=== PATIENT | male | born 1975 | race Caucasian/White ===

== ENCOUNTER 2017-04-14 07:37 | Emergency (ER) | payer SELFPAY ==
[2017-04-14] MEDS ORDERED: Ibuprofen 800 MG TAB ONE (08:12)
--- NOTE | 2017-04-14 08:50 | RAD ---
TWO VIEWS RIGHT TIBIA AND FIBULA: HISTORY: Fall. FINDINGS: AP and lateral views of right tibia and fibula demonstrate an oblique fracture in the distal right fi bula. Proximal distal fracture fragments are mildly displaced. The rest of the right tibia and fibu la is unremarkable. IMPRESSION: Oblique distal right fibula fracture. POS: [facility]
--- NOTE | 2017-04-14 08:51 | RAD ---
RIGHT ANKLE 3 VIEWS: Date: 04/14/17 HISTORY: Pain after fall. COMPARISON: None. FINDINGS: There is a coronal oblique fracture of the distal fibula through the level of the syndesmosis. Mild b imalleolar edema. IMPRESSION: Nondisplaced Olsen B distal fibular fracture through the syndesmosis. POS: [facility]
[2017-04-14] MEDS ORDERED: HYDROcodone/Acetaminophen 5/325 mg Tablet ONE (08:57)
--- NOTE | 2017-04-14 12:40 | RAD ---
LEFT SHOULDER 3 VIEWS: Date: 04/14/17 HISTORY: Pain after a fall. COMPARISON: None. FINDINGS: There is no fracture. No malalignment. There are capsular calcifications of the acromioclavicular violeta nt. Ribs are unremarkable. IMPRESSION: No acute fracture or malalignment. POS: [facility]
== END 2017-04-14 11:50 | disposition home or self-care (01) ==
LOC: ERS 07:37
DX: S82.831A Other fracture of upper and lower end of right fibula, initial encounter for closed fracture (principal); M10.9 Gout, unspecified; Z87.891 Personal history of nicotine dependence; W01.0XXA Fall on same level from slipping, tripping and stumbling without subsequent striking against object, initial encounter
CPT/HCPCS: 29505

== ENCOUNTER 2017-06-08 21:13 | Emergency (ER) | payer SELFPAY ==
--- NOTE | 2017-06-08 22:27 | RAD ---
THREE VIEWS RIGHT ANKLE 06/08/17 HISTORY: Left ankle fracture. Left ankle pain secondary to casting material. Patient states the cast was to be removed today but patient missed appointment. COMPARISON: 04/14/17. FINDINGS: The previously seen obliquely oriented fracture of the distal right fibula is again seen. Fracture fiona cencies do persist, but callus formation is now present about the fracture suggesting interval healin g. No additional fracture or dislocation is seen. There is subcutaneous soft tissue swelling at the a nterior and lateral aspect of the right ankle. No other interval change. IMPRESSION: 1. Healing fracture distal right fibula, but fracture lucencies do persist. 2. Subcutaneous soft tissue swelling. POS: [facility]
== END 2017-06-08 23:34 | disposition home or self-care (01) ==
LOC: ERS 21:13
DX: S82.831P Other fracture of upper and lower end of right fibula, subsequent encounter for closed fracture with malunion (principal); M10.9 Gout, unspecified; Z87.891 Personal history of nicotine dependence

== ENCOUNTER 2020-05-05 03:23 | Observation (INO) | payer SELFPAY ==
[2020-05-05] MEDS ORDERED: Mag-Al 1200 mg/1200 mg/30 ML UDCUP ONE (03:38)
[2020-05-05] MEDS ORDERED: Ketorolac Tromethamine 30 MG/ML VIAL ONE (03:38)
[2020-05-05] MEDS ORDERED: Lidocaine Viscous Sol 2% 15 ml UD Cup ONE (03:38)
[2020-05-05 04:05] LABS: #Basophils 0.1 thou/uL (0.0-0.2); #Eosinphils 0.2 thou/uL (0.0-0.7); #Lymphocytes 2.7 thou/uL (1.20-3.40); #Monocytes 1.1 thou/uL (0.11-0.59); #Neutrophils 9.1 thou/uL (1.40-6.50); %Basophils 0.9 % (0.0-1.0); %Eosinophils 1.3 % (0.0-10.0); %Lymphocytes 20.7 % (21.0-51.0); %Neutrophils 69.1 % (42.0-75.0); Hemoglobin 14.8 g/dL (14.0-18.0); Mean Corpuscular HGB CONC 34.8 g/dL (32.0-36.0); Mean Corpuscular Hemoglobin 31.5 pg (27.0-31.0); Mean Corpuscular Volume 90.4 fL (78.0-98.0); Mean Platelet Volume 7.6 fL (7.4-10.4); Platelet Count 276 thou/uL (130-400); RBC Distribution Width 12.4 % (11.5-14.5); Red Blood Cell (RBC) Count 4.69 mill/uL (4.70-6.10); White Blood Cell (WBC) Count 13.1 thou/uL (4.8-10.8)
[2020-05-05 04:30] LABS: ALT (SGPT) 21 U/L (8-55); AST (SGOT) 17 U/L (5-34); Albumin 4.1 g/dL (3.5-5.0); Alkaline Phosphatase 115 U/L (40-110); Anion Gap 12 mmol/L (10-20); BUN (Urea Nitrogen) 19 mg/dL (8.9-20.6); Bilirubin, Total 0.3 mg/dL (0.2-1.2); Calc. Creatinine Clearance 0 mL/min (70-130); Calcium 9.6 mg/dL (7.8-10.44); Carbon Dioxide 27 mmol/L (22-29); Chloride 102 mmol/L (98-107); Globulin 3.5 g/dL (2.4-3.5); Glucose 100 mg/dL (70-105); Lipase 11 U/L (8-78); Potassium 4.4 mmol/L (3.5-5.1); Protein, Total 7.6 g/dL (6.0-8.3); Sodium 137 mmol/L (136-145)
[2020-05-05] MEDS ORDERED: Ondansetron PF 4 MG/2 ML Vial ONE ×2 (05:08→11:30)
[2020-05-05] MEDS ORDERED: Piperacillin/Tazobactam 4.5 GM VIAL ONE (05:08)
[2020-05-05] MEDS ORDERED: Morphine 4 MG/ML VIAL ONE (05:08)
--- NOTE | 2020-05-05 07:44 | ULT ---
PRELIMINARY REPORT/[facility]/EMERGENCY AFTER HOURS PROCEDURE: Receipt of this report by the clinical staff was confirmed with Ani Orellana RN by Shelby Farrell on May 05, 2020 05:02:00 WEED CUTTER. Addendum electronically signed by Shelby Farrell on May 05, 2020 5:03:11 AM WEED CUTTER EXAM: US Abdomen Limited, Right Upper Quadrant. CLINICAL HISTORY: HX: ABD PAIN. TECHNIQUE: Real-time ultrasound of the right upper quadrant with image documentation. COMPARISON: None provided. FINDINGS: LIVER: Unremarkable. GALLBLADDER: No gallstone. Gallbladder sludge is noted with wall thickening at 4.6 mm along with per icholecystic fluid. COMMON BILE DUCT: No dilation. Measures 5.4 mm PANCREAS: Obscured by overlying bowel gas. RIGHT KIDNEY: Unremarkable. No hydronephrosis. Measures 10.1 cm and demonstrates a 1.6 cm cyst IMPRESSION: The findings are consistent with acalculous cholecystitis ELECTRONICALLY SIGNED BY: Elie Mayo MD May 05, 2020 4:57:20 AM WEED CUTTER FINAL REPORT ULTRASOUND GALLBLADDER RIGHT UPPER QUADRANT: CLINICAL HISTORY: Abdominal pain.. COMPARISON: None. FINDINGS: Limited evaluation due to body habitus. Pancreas: Obscured by bowel gas. Liver:Hepatic parenchyma has a normal echotexture. No hepatic masses or intrahepatic biliary dilatati on. Gallbladder: There is sludge within the lumen of gallbladder. Gallbladder wall is thickened measuring 0.5 cm. A small amount of pericholecystic fluid. Escobar's sign: Positive. Portal Vein: Not adequately assessed. Bile ducts: Not adequately assessed. Right kidney: No hydronephrosis. Right kidney measures 10 cm cm in length. Incidental 1.6 cm cyst. IMPRESSION: 1. This report is in agreement with initial report by [facility]. 2. Sonographic evidence of acalculus cholecystitis. HIDA scan if clinically warranted. Transcribed Date/Time: 05/05/2020 7:55 AM
[2020-05-05] MEDS ORDERED: Morphine 4 MG/ML VIAL SLOW IVP PRN (08:09)
[2020-05-05] MEDS ORDERED: Sodium Chloride 0.9% 1,000 ML IV SCH ×2 (08:15)
[2020-05-05] MEDS ORDERED: Ketorolac Tromethamine 30 MG/ML VIAL IVP SCH (08:15)
[2020-05-05] MEDS ORDERED: Acetaminophen 500 MG TAB PO SCH (08:15)
[2020-05-05] MEDS ORDERED: Bupivacaine PF 0.5% 30 ML VIAL ONE (08:24)
[2020-05-05] MEDS ORDERED: EPINEPHrine 1 MG/ML AMP ONE (08:24)
--- NOTE | 2020-05-05 08:32 | HP ---
HISTORY OF PRESENT ILLNESS: Roe Escobar was seen in the emergency room yesterday, admitted, COVID swab was not done, however, done rapid test requested this morning. He does odd jobs, construction type work, works for himself. He has had over 2 or 3 months of episodic epigastric right upper quadrant pain. This episode was severe, brought into the emergency room. Ultrasound revealed gallbladder sludge, normal LFTs, normal lipase, and normal bile duct caliber. Plan is for laparoscopic cholecystectomy. ALLERGIES: NONE. SOCIAL HISTORY: Tobacco cessation 10 years ago, alcohol rarely. MEDICATIONS: None routinely. PAST SURGICAL AND MEDICAL HISTORY: Noncontributory except hand surgery remotely. REVIEW OF SYSTEMS: Noncontributory. FAMILY HISTORY: Noncontributory. PHYSICAL EXAMINATION: VITAL SIGNS: Temperature 97.4, pulse 65, blood pressure 143/74, 149 kg. HEAD, EARS, EYES, NOSE, AND THROAT: Unremarkable. LUNGS: Clear to auscultation. CARDIAC: Regular rate and rhythm. No murmur or gallop. ABDOMEN: Soft, obese. Tenderness in right upper quadrant guarding. EXTREMITIES: Unremarkable. ASSESSMENT AND PLAN: Cholecystitis. Recommend laparoscopic video cholecystectomy. Risks of infection, bleeding, visceral and biliary injury, open procedure discussed, questions answered. Plan is today unless of course rapid test could not be performed or approved stay overnight. Job ID: [id number]
[2020-05-05 08:41] VITALS: BMI 40.1
[2020-05-05 09:19] LABS: SARS-CoV-2 NAA Rapid Test Not Detected (NotDetected)
--- NOTE | 2020-05-05 09:21 | RAD ---
PORTABLE CHEST: HISTORY: Abdominal pain. FINDINGS: Lungs appear clear of infiltrate. Heart and mediastinum unremarkable. IMPRESSION: No acute finding. POS: [facility]
[2020-05-05] MEDS ORDERED: Piperacillin/Tazobactam 4.5 GM in Sodium Chloride 0.9% 100 ML IVPB SCH (11:00)
[2020-05-05] MEDS ORDERED: Ondansetron PF 4 MG/2 ML Vial IVP PRN (11:15)
[2020-05-05] MEDS ORDERED: Ondansetron ODT 4 MG TAB SL PRN (11:15)
[2020-05-05] MEDS ORDERED: PROPOFOL 200 MG/20 ML VIAL ONE (11:30)
[2020-05-05] MEDS ORDERED: Lidocaine 1% PF 5 ML VIAL ONE (11:30)
[2020-05-05] MEDS ORDERED: Metoclopramide HCl 10 MG/2 ML VIAL ONE (11:30)
[2020-05-05] MEDS ORDERED: Dexamethasone 20 MG/5 ML VIAL ONE (11:30)
[2020-05-05] MEDS ORDERED: Rocuronium Bromide 10 MG/ML (10ML VIAL) ONE (11:30)
[2020-05-05] MEDS ORDERED: Fentanyl 100 MCG/2 ML VIAL ONE ×5 (11:39→14:24)
[2020-05-05] MEDS ORDERED: Famotidine/PF 20 mg/2ml Vial ONE (12:13)
[2020-05-05] MEDS ORDERED: SUGAMMADEX SODIUM 500 MG/5 ML VIAL ONE (12:13)
[2020-05-05] MEDS ORDERED: Ibuprofen 600 MG TAB PO PRN (12:50)
[2020-05-05] MEDS ORDERED: traMADol HCl 50 MG TAB PO PRN ×2 (12:50)
[2020-05-05] MEDS ORDERED: Promethazine HCl 25 MG/ML VIAL SLOW IVP PRN (12:52)
[2020-05-05] MEDS ORDERED: Promethazine HCl 25 MG/ML VIAL IM PRN (12:52)
[2020-05-05] MEDS ORDERED: Ondansetron HCl/PF 4 MG/2 ML Vial IVP PRN (12:52)
[2020-05-05] MEDS ORDERED: hydrALAZINE 20 MG/ML VIAL SLOW IVP PRN (12:55)
[2020-05-05] MEDS ORDERED: Metoprolol Tartrate 5 MG/5 ML VIAL IVP PRN (12:56)
--- NOTE | 2020-05-05 13:22 | OP ---
DATE OF PROCEDURE: 05/05/2020 PREOPERATIVE DIAGNOSES: Acute chronic cholecystitis, cholelithiasis, obesity. POSTOPERATIVE DIAGNOSES: Acute chronic cholecystitis, cholelithiasis, obesity. PROCEDURE PERFORMED: Laparoscopic video cholecystectomy. ANESTHESIA: General, local 0.5% Marcaine 30 mL, mixed with 1% Xylocaine with epinephrine 20 mL. DESCRIPTION OF PROCEDURE: The patient was taken to the operating room, where under general anesthesia, abdomen was prepared with ChloraPrep and draped in routine fashion. Local anesthetic was infiltrated in the skin and subcutaneous tissue about each port site. Supraumbilical incision made, pneumoperitoneum to 15 mmHg obtained with a Veress needle, replaced with a 5 port. Laparoscope inserted. Right lateral subcostal incision made in midclavicular and anterior axillary line and 5 ports placed. Right subxiphoid incision was made and 11 port placed. Liver appeared to be normal. Fundus of the gallbladder grasped and retracted cephalad. Gallbladder wall was slightly thickened and edematous. Infundibulum grasped and retracted laterally. Cystic artery and duct dissected free. Critical view obtained. Cystic artery and duct doubly clipped proximally, divided. Gallbladder dissected free from liver bed obtaining good hemostasis prior to division of final peritoneal attachments. Gallbladder and contents removed, submitted to Pathology. Good hemostasis obtained with clips and cautery. Good hemostasis ensured and all instruments removed and all skin incisions approximated with subdermal 4-0 Monocryl, and [place] glue applied. The patient tolerated the procedure well. Job ID: [id number]
[2020-05-05] MEDS ORDERED: Morphine 2 MG/ML VIAL ONE (13:33)
[2020-05-05] MEDS ORDERED: hydrALAZINE 20 MG/ML VIAL ONE (13:52)
[2020-05-05] MEDS ORDERED: Labetalol HCl 100 MG/20 ML VIAL ONE (14:18)
[2020-05-05] MEDS ORDERED: Ketorolac Tromethamine 30 MG/ML VIAL IVP PRN (15:00)
[2020-05-05] MEDS ORDERED: Acetaminophen 500 MG TAB PO PRN (15:00)
[2020-05-05 15:18] VITALS: TEMP 97.9
[2020-05-05 18:07] VITALS: BP 134/82
--- NOTE | 2020-05-06 07:12 | DIS ---
DATE OF ADMISSION: 05/05/2020 DATE OF DISCHARGE: 05/05/2020 DISCHARGE DIAGNOSES: Obesity, BMI 40, cholecystitis, cholelithiasis. PROCEDURES: Ultrasound of the gallbladder, laparoscopic video cholecystectomy. HISTORY: 44-year-old male patient presented with biliary colic history, presents with intolerable pain, seen in the emergency room. Ultrasound obtained, verified cholelithiasis, gallbladder sludge, normal bile duct caliber, and pericholecystic fluid. Liver function tests were normal. He was hospitalized overnight, given intravenous fluids, antibiotics, and taken to the operating room for laparoscopic video cholecystectomy after which he was discharged home. Diet and activity as tolerated. No lifting restrictions. Tylenol, Advil [id number] p.r.n. pain. Ultram #25, no refills was submitted to his Pharmacy. Job ID: [id number]
== END 2020-05-05 18:30 | disposition home or self-care (01) ==
LOC: ERS 03:23 → SURG A 06:28
PROVIDERS: ADMIT Surgery; ATTEND Surgery
PROC: 0FT44ZZ Resection of Gallbladder, Percutaneous Endoscopic Approach (ICD-10-PCS; principal; 2020-05-05)
DX: K80.12 Calculus of gallbladder with acute and chronic cholecystitis without obstruction (principal); G89.29 Other chronic pain; M54.9 Dorsalgia, unspecified; M10.9 Gout, unspecified; M17.9 Osteoarthritis of knee, unspecified; E66.9 Obesity, unspecified; Z68.41 Body mass index [BMI] 40.0-44.9, adult; Z87.891 Personal history of nicotine dependence; Z20.822 Contact with and (suspected) exposure to COVID-19
CPT/HCPCS: 36415; 71045; 76705; 80053; 83690; 84484; 85025; 88304; 93005; 96374; 96375; 96376; G0378; J0171; J0360; J1100; J1885; J1956; J2270; J2405; J2543; J2704; J2765; J3010; S0020; S0028; U0002

== ENCOUNTER 2020-05-09 14:34 | Inpatient (IN) | payer SELFPAY ==
[~2020-05-09 14:34] MED LIST: Iopamidol-370 76% 500 ML 1 ML ONE
[2020-05-09 15:21] LABS: #Eosinphils 0.5 thou/uL (0.0-0.7); #Lymphocytes 1.8 thou/uL (1.20-3.40); #Monocytes 1.4 thou/uL (0.11-0.59); #Neutrophils 7.9 thou/uL (1.40-6.50); %Basophils 0.3 % (0.0-1.0); %Eosinophils 4.6 % (0.0-10.0); %Lymphocytes 15.5 % (21.0-51.0); %Monocytes 11.7 % (0.0-10.0); %Neutrophils 67.9 % (42.0-75.0); Hemoglobin 15.3 g/dL (14.0-18.0); Mean Corpuscular HGB CONC 34.1 g/dL (32.0-36.0); Mean Corpuscular Hemoglobin 31.5 pg (27.0-31.0); Mean Corpuscular Volume 92.4 fL (78.0-98.0); Mean Platelet Volume 7.7 fL (7.4-10.4); Platelet Count 256 thou/uL (130-400); RBC Distribution Width 12.6 % (11.5-14.5); Red Blood Cell (RBC) Count 4.87 mill/uL (4.70-6.10); White Blood Cell (WBC) Count 11.6 thou/uL (4.8-10.8)
[2020-05-09] MEDS ORDERED: Morphine 4 MG/ML VIAL ONE (15:28)
[2020-05-09] MEDS ORDERED: Ondansetron PF 4 MG/2 ML Vial ONE (15:28)
[2020-05-09 15:51] LABS: ALT (SGPT) 610 U/L (8-55); AST (SGOT) 331 U/L (5-34); Albumin 3.8 g/dL (3.5-5.0); Alkaline Phosphatase 394 U/L (40-110); Anion Gap 17 mmol/L (10-20); BUN (Urea Nitrogen) 21 mg/dL (8.9-20.6); Calc. Creatinine Clearance 0 mL/min (70-130); Calcium 9.1 mg/dL (7.8-10.44); Carbon Dioxide 22 mmol/L (22-29); Chloride 102 mmol/L (98-107); Globulin 3.8 g/dL (2.4-3.5); Glucose 126 mg/dL (70-105); Potassium 4.7 mmol/L (3.5-5.1); Protein, Total 7.6 g/dL (6.0-8.3); Sodium 136 mmol/L (136-145)
[2020-05-09 16:01] LABS: Lipase 4926 U/L (8-78)
--- NOTE | 2020-05-09 16:02 | CT ---
EXAM: CT ABDOMEN AND PELVIS HISTORY: Recent cholecystectomy. Worsening abdominal pain. COMPARISON: None. Procedure: Multiple contiguous axial images were obtained and a CT of the abdomen and pelvis with IV contrast. C oronal reformats were performed. FINDINGS: Lower Chest: Atelectatic changes in the right lower lobe. Asymmetric right pleural thickening with fa t attenuation. Vessels: Normal caliber aorta. No periaortic fat stranding Heart: Normal heart size. No significant pericardial fluid Abdomen: Portal vein:Patent Gallbladder: Surgically absent. There is heterogeneous attenuation the gallbladder fossa which is pre sumed to represent post surgical change. Liver: within normal limits. Pancreas: Appropriate attenuation the pancreas. However, there is extensive peripancreatic fluid worr isome for pancreatitis. No evidence of a abscess or pseudocyst. Correlate with laboratory values. Spleen: within normal limits. Adrenals: within normal limits. Kidneys: Enhancement of the kidneys. Bilaterally no obstructive uropathy. There is a intraparenchymal cyst in the right renal cortex measuring 2.0 x 3.2 cm. Peritoneum: There is evidence of peripancreatic fluid. Fluid tracks along the left and right hemiabdo men anterior to the renal space. No mass, lymphadenopathy or free air. No evidence of a peritoneal abscess. Bowel: Evaluation the lack of oral contrast. There appear to be reactive changes involving the duoden um from adjacent pancreatitis. No evidence of a bowel obstruction. Normal ileocecal junction. Scattered fecal material in a decompressed colon. Normal caliber appendix. Mesentery and Retroperitoneum: No enlarged mesenteric or retroperitoneal lymph nodes. Abdominal Wall: Findings compatible with recent laparoscopic cholecystectomy Pelvis: Reproductive Organs: Reproductive organs are unremarkable. Pelvis: No mass, lymphadenopathy, free air or free fluid. Bladder: within normal limits. Bones: within normal limits. IMPRESSION: 1. Peripancreatic inflammatory changes. Correlate for possible pancreatitis. 2. Postsurgical changes compatible with patient's history: Discectomy. Heterogeneous attenuation gall bladder fossa likely represents post surgical change. No evidence of a intra-abdominal abscess. If there is concern for biliary leak, consider HIDA scan.
[2020-05-09] MEDS ORDERED: Sodium Chloride 0.9% 1,000 ML IV SCH (16:45)
[2020-05-09 17:12] LABS: Bilirubin Large (Negative); Blood, Urine Negative (Negative); Glucose, Urine (Dipstick) Negative (Negative); Ketone, Urine Negative (Negative); Leukocyte Negative (Negative); Nitrite Negative (Negative); Protein, Urine (Dipstick) Trace mg/dL (Neg-Trace); pH, Urine 6.5 (5.0-9.0)
[2020-05-09 17:27] LABS: Clarity Clear (Clear); RBC/HPF None Seen HPF (0-3); Squamous Epithelial 0-3 HPF (0-3); WBC/HPF None Seen HPF (0-3)
[2020-05-09 17:28] LABS: Bacteria/HPF None Seen HPF (None Seen)
[2020-05-09] MEDS ORDERED: Morphine 4 MG/ML VIAL IV PRN (18:19)
[2020-05-09] MEDS ORDERED: Ondansetron PF 4 MG/2 ML Vial IVP PRN ×3 (18:30→20:13)
[2020-05-09] MEDS ORDERED: Ondansetron ODT 4 MG TAB SL PRN ×2 (18:30→20:39)
[2020-05-09] MEDS ORDERED: Acetaminophen 325 MG TAB PO PRN (18:30)
[2020-05-09 20:02] VITALS: BMI 41.5
[2020-05-09] MEDS ORDERED: Ondansetron ODT 4 MG TAB PO PRN (20:11)
[2020-05-09] MEDS ORDERED: Ketorolac Tromethamine 30 MG/ML VIAL IVP PRN (20:13)
[2020-05-09] MEDS ORDERED: Enoxaparin Sodium 40 MG/0.4 ML SYRINGE SC SCH (21:00)
[2020-05-09] MEDS: Lactated Ringer's 1,000 ML IV SCH (21:35)
[2020-05-09] MEDS: Famotidine/PF 20 mg/2ml Vial SLOW IVP SCH (21:36)
[2020-05-09] MEDS: Enoxaparin Sodium 40 MG/0.4 ML SYRINGE SC SCH (21:37)
[2020-05-09] MEDS: Morphine 4 MG/ML VIAL IV PRN ×2 (21:42→23:50)
--- NOTE | 2020-05-09 21:58 | HP ---
HISTORY OF PRESENT ILLNESS: Roe Escobar is a 44-year-old male patient, who I saw through the emergency room and on 05/05/2020, underwent laparoscopic video cholecystectomy and was discharged home the same day. Pathology revealed chronic cholecystitis, cholelithiasis, cholesterolosis. Preoperatively, his liver function tests were normal. Preoperatively, his lipase was normal. The patient states that he after went home on May 05, that he was doing well and he felt well on Tuesday and Tuesday, but began having increased abdominal pain, nausea, vomiting, prompting to call my office late in the morning just before office closed and he was advised to go to the emergency room. In the emergency room, his bilirubin was noted to be 6, AST 331, ALT 16, alkaline phosphatase 394, lipase 4926. Repeat COVID was performed and results pending. Urinalysis reveals specific gravity 1.020. White count is 11, hemoglobin 15.3. The patient underwent scan of the abdomen and pelvis in the emergency room, read by Dr. Green, revealed the liver to be normal with peripancreatic findings consistent with pancreatitis. Gallbladder noted to be surgically absent and some mild inflammatory changes, but no fluid collection. There was not noted any evidence of biliary dilatation or at least not commented upon. The patient was given 1 L of fluid and saline locked, and after conversation with the ER physician, given another liter of fluid and fluids at 200 an hour. ALLERGIES: NONE KNOWN. SOCIAL HISTORY: Tobacco cessation 10 years ago, alcohol rarely. MEDICATIONS: None routinely. PAST SURGICAL HISTORY: Hand surgery, recent cholecystectomy. FAMILY HISTORY: Noncontributory. No change. REVIEW OF SYSTEMS: Noncontributory. No change. PHYSICAL EXAMINATION: VITAL SIGNS: Temperature 97.8, pulse 78, blood pressure 145/104. LUNGS: Clear to auscultation. CARDIAC: Regular rate and rhythm. No murmur or gallop. ABDOMEN: Obese. Laparoscopic trocar site incisions well healed and well closed with Dermabond without problems evident. No evident hernias. He has tenderness in his upper abdomen with guarding. EXTREMITIES: Unremarkable. LABORATORY DATA: Liver function test elevation is noted, described. Bilirubin 6, AST 331, ALT 16, alkaline phosphatase 394, 4926 lipase. ASSESSMENT AND PLAN: Postoperative biliary pancreatitis with elevated bilirubin. Would resuscitate him with IV fluids. Repeat liver function tests in the morning. Depending on his clinical course, if his LFTs do not resolve, he may need GI consultation for consideration of ERCP or MRCP. We will see how he does clinically. We will ask GI to see him in the morning. We will repeat his COVID screen. Job ID: [id number]
[2020-05-09] MEDS: Ketorolac Tromethamine 30 MG/ML VIAL IVP SCH (23:46)
[2020-05-10] MEDS: Lactated Ringer's 1,000 ML IV SCH ×5 (02:05→20:11)
[2020-05-10 04:16] LABS: SARS-CoV-2 PCR by NAA Not Detected (NotDetected)
[2020-05-10] MEDS: Morphine 4 MG/ML VIAL IV PRN (04:27)
[2020-05-10] MEDS: Ketorolac Tromethamine 30 MG/ML VIAL IVP SCH ×3 (06:18→18:02)
[2020-05-10] MEDS: Morphine 4 MG/ML VIAL SLOW IVP PRN ×3 (06:19→21:37)
[2020-05-10 08:02] LABS: #Basophils 0.1 thou/uL (0.0-0.2); #Eosinphils 0.2 thou/uL (0.0-0.7); #Lymphocytes 1.2 thou/uL (1.20-3.40); #Monocytes 1.3 thou/uL (0.11-0.59); #Neutrophils 14.3 thou/uL (1.40-6.50); %Basophils 0.3 % (0.0-1.0); %Eosinophils 0.9 % (0.0-10.0); %Lymphocytes 7.3 % (21.0-51.0); %Monocytes 7.4 % (0.0-10.0); %Neutrophils 84.2 % (42.0-75.0); Hemoglobin 16.5 g/dL (14.0-18.0); Mean Corpuscular HGB CONC 33.8 g/dL (32.0-36.0); Mean Corpuscular Hemoglobin 31.7 pg (27.0-31.0); Mean Corpuscular Volume 93.9 fL (78.0-98.0); Mean Platelet Volume 7.7 fL (7.4-10.4); Platelet Count 243 thou/uL (130-400); RBC Distribution Width 12.5 % (11.5-14.5)
[2020-05-10 08:15] LABS: ALT (SGPT) 425 U/L (8-55); AST (SGOT) 149 U/L (5-34); Albumin 3.4 g/dL (3.5-5.0); Alkaline Phosphatase 428 U/L (40-110); Anion Gap 15 mmol/L (10-20); BUN (Urea Nitrogen) 19 mg/dL (8.9-20.6); Bilirubin, Total 7.2 mg/dL (0.2-1.2); Calc. Creatinine Clearance 252 mL/min (70-130); Calcium 8.6 mg/dL (7.8-10.44); Carbon Dioxide 21 mmol/L (22-29); Chloride 105 mmol/L (98-107); Globulin 3.2 g/dL (2.4-3.5); Glucose 97 mg/dL (70-105); Lipase 868 U/L (8-78); Potassium 4.6 mmol/L (3.5-5.1); Protein, Total 6.6 g/dL (6.0-8.3); Sodium 136 mmol/L (136-145)
[2020-05-10] MEDS: Famotidine/PF 20 mg/2ml Vial SLOW IVP SCH ×2 (09:05→20:14)
[2020-05-10] MEDS ORDERED: Sodium Chloride 0.9% 1,000 ML IV SCH (10:15)
--- NOTE | 2020-05-10 12:53 | PDOC.BPN ---
- Brief Progress Note Encounter Date: 05/10/20 Encounter Time: 12:51 No acute events overnight. Denies nausea or vomiting. Complains of stable abdominal pain EXAM: VS: T 98.3 HR 93 BP 143/91 RR 16 General: Alert and oriented, no acute distress, resting comfortably Pulmonary: No dyspnea or difficulty breathing Abdomen: Soft, non-distended, general tenderness to palpation in the mid abdomen. No evidence of peritonitis CV: Regular rate and rhythm, palpable distal pulses Extremities: No edema I/O: N.p.o. oral intake Multiple voids voids [facility] LAB[facility]ATORY / IMAGING: Laboratory analysis reviewed and demonstrates an increasing leukocytosis from 11.6-17. Hemoglobin stable at 16.5. Total bilirubin elevated from 6-7.2. Elevated alkaline phosphatase at 428 and lipase at 868. PLAN: 44-year-old male status post laparoscopic cholecystectomy on May 05, 2020, now with likely common bile duct obstruction with associated pancreatitis. Gastroenterology has been consulted and plans for ERCP. We will continue to follow and reevaluate after ERCP. recommend continued fluid resuscitation and strict ins and outs. [ ]
[2020-05-10 15:48] LABS: Hemoglobin 15.9 g/dL (14.0-18.0); Mean Corpuscular HGB CONC 33.3 g/dL (32.0-36.0); Mean Corpuscular Hemoglobin 31.1 pg (27.0-31.0); Mean Corpuscular Volume 93.4 fL (78.0-98.0); Mean Platelet Volume 7.9 fL (7.4-10.4); Platelet Count 237 thou/uL (130-400); RBC Distribution Width 12.7 % (11.5-14.5); Red Blood Cell (RBC) Count 5.12 mill/uL (4.70-6.10); White Blood Cell (WBC) Count 20.1 thou/uL (4.8-10.8)
[2020-05-10 16:04] LABS: MDiff Complete? YES
[2020-05-10 16:05] LABS: Band 13 % (5-11); Eosinophils 1 % (0-10); Lymphocytes 6 % (21-51); Monocytes 10 % (0-10); Neutrophil 62 % (42-75); Platelet Morphology Comment Appears Adequate; Polychromasia SLIGHT = 2-3 cells (100X) (0-2/hpf); Reactive Lymphocytes 7 % (0-10)
[2020-05-10 16:08] LABS: ALT (SGPT) 353 U/L (8-55); AST (SGOT) 106 U/L (5-34); Albumin 3.2 g/dL (3.5-5.0); Alkaline Phosphatase 418 U/L (40-110); Anion Gap 15 mmol/L (10-20); BUN (Urea Nitrogen) 18 mg/dL (8.9-20.6); Bilirubin, Total 8.5 mg/dL (0.2-1.2); Calc. Creatinine Clearance 238 mL/min (70-130); Calcium 8.4 mg/dL (7.8-10.44); Carbon Dioxide 20 mmol/L (22-29); Chloride 104 mmol/L (98-107); Globulin 3.1 g/dL (2.4-3.5); Glucose 75 mg/dL (70-105); Lipase 551 U/L (8-78); Potassium 4.6 mmol/L (3.5-5.1); Protein, Total 6.3 g/dL (6.0-8.3); Sodium 134 mmol/L (136-145)
[2020-05-10] MEDS: Enoxaparin Sodium 40 MG/0.4 ML SYRINGE SC SCH (20:15)
[2020-05-11] MEDS: Ketorolac Tromethamine 30 MG/ML VIAL IVP SCH ×5 (00:58→23:40)
[2020-05-11] MEDS: Lactated Ringer's 1,000 ML IV SCH ×5 (01:00→23:41)
[2020-05-11] MEDS: Morphine 4 MG/ML VIAL SLOW IVP PRN (05:36)
[2020-05-11 06:02] LABS: #Eosinphils 0.1 thou/uL (0.0-0.7); #Lymphocytes 1.5 thou/uL (1.20-3.40); #Monocytes 2.5 thou/uL (0.11-0.59); #Neutrophils 19.4 thou/uL (1.40-6.50); %Basophils 0.2 % (0.0-1.0); %Eosinophils 0.3 % (0.0-10.0); %Lymphocytes 6.2 % (21.0-51.0); %Monocytes 10.5 % (0.0-10.0); %Neutrophils 82.8 % (42.0-75.0); Hemoglobin 15.3 g/dL (14.0-18.0); Mean Corpuscular HGB CONC 33.4 g/dL (32.0-36.0); Mean Corpuscular Hemoglobin 31.2 pg (27.0-31.0); Mean Corpuscular Volume 93.4 fL (78.0-98.0); Mean Platelet Volume 7.9 fL (7.4-10.4); Platelet Count 241 thou/uL (130-400); RBC Distribution Width 12.6 % (11.5-14.5); White Blood Cell (WBC) Count 23.5 thou/uL (4.8-10.8)
--- NOTE | 2020-05-11 07:45 | PDOC.BPN ---
- Brief Progress Note Encounter Date: 05/11/20 Encounter Time: 07:40 Abdominal pain stable. Continues with some emesis EXAM: VS: T 99.1 HR 97 BP 141/85 RR 16 General: Alert and oriented, no acute distress, resting comfortably Pulmonary: No dyspnea or difficulty breathing Abdomen: Soft, non-distended, stable to improving abdominal pain. Incisions clean CV: Regular rate and rhythm, palpable distal pulses Extremities: No edema I/O: N.p.o. oral intake 2700 [facility] LAB[facility]ATORY / IMAGING: Laboratory analysis reviewed and demonstrates an increasing leukocytosis from 17-20. Hemoglobin stable. Total bilirubin elevated from 7.2 - 8.5. Elevated alkaline phosphatase. Lipase decreased from 8 68-5 51 PLAN: 44-year-old male status post laparoscopic cholecystectomy on May 05, 2020, now with likely common bile duct obstruction with associated pancreatitis. Case discussed with GI this morning... plans for ERCP today. We will continue to follow and reevaluate after ERCP. Recommend continued fluid resuscitation and strict ins and outs.
[2020-05-11 08:19] LABS: ALT (SGPT) 241 U/L (8-55); AST (SGOT) 58 U/L (5-34); Alkaline Phosphatase 409 U/L (40-110); Bilirubin, Direct 6.6 mg/dL (0.1-0.3); Bilirubin, Total 8.4 mg/dL (0.2-1.2); Protein, Total 6.1 g/dL (6.0-8.3)
[2020-05-11 08:19] LABS: ALT (SGPT) 243 U/L (8-55); AST (SGOT) 58 U/L (5-34); Alkaline Phosphatase 406 U/L (40-110); Anion Gap 14 mmol/L (10-20); BUN (Urea Nitrogen) 17 mg/dL (8.9-20.6); Bilirubin, Total 8.7 mg/dL (0.2-1.2); Calc. Creatinine Clearance 249 mL/min (70-130); Calcium 8.6 mg/dL (7.8-10.44); Carbon Dioxide 24 mmol/L (22-29); Chloride 104 mmol/L (98-107); Globulin 3.2 g/dL (2.4-3.5); Glucose 81 mg/dL (70-105); Lipase 272 U/L (8-78); Potassium 4.2 mmol/L (3.5-5.1); Protein, Total 6.2 g/dL (6.0-8.3); Sodium 138 mmol/L (136-145)
[2020-05-11] MEDS ORDERED: Succinylcholine 200 MG/10 ml SYRINGE FS ONE (08:47)
[2020-05-11] MEDS ORDERED: PROPOFOL 200 MG/20 ML VIAL ONE (08:47)
[2020-05-11] MEDS ORDERED: Ondansetron PF 4 MG/2 ML Vial ONE (08:47)
[2020-05-11] MEDS ORDERED: Glycopyrrolate 0.2 MG/ML 5 ML SYRINGE ONE (08:47)
[2020-05-11] MEDS ORDERED: Rocuronium Bromide 10 MG/ML (10ML VIAL) ONE (08:47)
[2020-05-11] MEDS ORDERED: Dexamethasone 20 MG/5 ML VIAL ONE (08:47)
[2020-05-11] MEDS ORDERED: Lidocaine 1% PF 5 ML VIAL ONE (08:47)
--- NOTE | 2020-05-11 09:29 | CON ---
DATE OF CONSULTATION: 05/10/2020 CONSULTING PHYSICIAN: Dr. Virgilio Greenwood. REASON FOR CONSULTATION: Pancreatitis. HISTORY OF PRESENT ILLNESS: Mr. Escobar is a 44-year-old gentleman who had a laparoscopic cholecystectomy on 05/05. He had laparoscopic cholecystectomy for gallbladder sludge, gallbladder wall thickening, pericholecystic fluid. Common bile duct was reportedly at 5.4 mm. He underwent laparoscopic cholecystectomy and was discharged home. Surgical specimen showed acute on chronic cholecystitis with cholesterolosis. He re-presented last night with abdominal pain, had a white count of 11, hemoglobin 15.3, and platelet count of 256. His bilirubin was 6. AST and ALT were 331 and 610 with alkaline phosphatase of 394. His alkaline phosphatase was 115 prior to surgery. His lipase was 4926, it had been 11 previous admission. He was admitted, given IV fluids, presently receiving 175 mL/hour of IV fluids, receiving pain control, Pepcid for ulcer prophylaxis. Presently, he states he feels a little bit better. The nurses states he has been voiding through the night. PAST MEDICAL HISTORY: Obesity. PAST SURGICAL HISTORY: Cholecystectomy and hand surgery. FAMILY HISTORY: Noncontributory. SOCIAL HISTORY: Negative for alcohol, drugs, or tobacco. PRESENT MEDICATIONS: 1. Lovenox. 2. Pepcid. 3. Toradol 30 mg q.6 hours p.r.n. 4. LR 175 an hour. 5. Morphine p.r.n. 6. Zofran p.r.n. PHYSICAL EXAMINATION: VITAL SIGNS: Temperature is 98.3. Pulse is 101, it was 92 last night. Blood pressure 128/86. GENERAL: He is resting in bed. He is a little bit sleepy. The nurse notes he had pain medicine about an hour ago. HEENT: He is mildly icteric. The oropharynx is slightly dry. NECK: Supple. LUNGS: Clear. HEART: Regular without clicks or murmurs. ABDOMEN: Soft. It is tender. It is very protuberant. It is not tight. Bowel sounds are quiescent but present. There are no hernias. There is no rebound or guarding. Incision sites look okay. EXTREMITIES: No clubbing, cyanosis, or edema. LABORATORY DATA: Today; white count 17,000 up from 15, hemoglobin is up to 16.5 from 15.3, platelets were 243. Basic metabolics okay. BUN and creatinine are 19 and 0.8. Bilirubin 7.2, which is higher. AST is down to 149, ALT is down to 425 down from 610, and alkaline phosphatase is 428, which is a little bit up. Lipase has dropped to 868. ASSESSMENT: 1. Post laparoscopic cholecystectomy, he has now got pancreatitis, likely this is related to choledocholithiasis. He did not have an IOC at time of his surgery. Some type of surgical trauma could be at play or a common bile duct injury, but cause pancreatitis. The CT scan is consistent with pancreatitis. 2. His hemoglobin has actually increased since admission as his white count has. RECOMMENDATIONS: 1. Bolus a liter of fluid, increase fluids to 200 an hour. 2. With dropping lipase, he probably has passed the stone. He shows no signs of cholangitis. We will continue to follow along with you and repeat LFTs tomorrow. If he begins to show any evidence of ascending cholangitis or liver function tests down to normal, we can consider an ERCP. Job ID: [id number]
[2020-05-11] MEDS ORDERED: Indomethacin 50 MG SUPP ONE (09:58)
[2020-05-11] MEDS ORDERED: Iothalamate Meglumine 60% 50 ML VIAL FS ONE (09:58)
[2020-05-11] MEDS: Famotidine/PF 20 mg/2ml Vial SLOW IVP SCH ×2 (10:00→21:01)
[2020-05-11] MEDS ORDERED: Fentanyl 100 MCG/2 ML VIAL ONE (10:01)
[2020-05-11] MEDS ORDERED: Promethazine HCl 25 MG/ML VIAL SLOW IVP PRN (11:28)
[2020-05-11] MEDS ORDERED: HYDROmorphone 2 MG/ML VIAL SLOW IVP PRN (11:28)
[2020-05-11] MEDS ORDERED: Promethazine HCl 25 MG/ML VIAL IM PRN (11:28)
[2020-05-11] MEDS ORDERED: Ondansetron HCl/PF 4 MG/2 ML Vial IVP PRN (11:28)
--- NOTE | 2020-05-11 11:57 | PRG ---
DATE OF SERVICE: 05/11/2020 SUBJECTIVE: Mr. Escobar continues to have some abdominal pain, although much better. MEDICATIONS: 1. Pepcid 20 IV q.12. 2. Lovenox. 3. Hydralazine p.r.n. 4. Toradol 30 q.6. 5. LR 200. 6. PRN morphine. OBJECTIVE: VITAL SIGNS: Temperature is 98, pulse is 83, blood pressure is 150/82, T-max 100 last night at 2000 hours. GENERAL: He is obese. He is somewhat sleepy, but arousable. He is icteric. LUNGS: Clear. ABDOMEN: Tender in the upper abdomen. It is not tight. There is no rebound. There is voluntary guarding. LABORATORY DATA: Sodium 138, potassium 4.2, BUN and creatinine are 17 and 0.8, bilirubin is 8.7 and it was 8.5 yesterday. AST is 58, down from 149 on admission; ALT is 243, down from 425 on admission; alkaline phosphatase is 406. Lipase is 272. White count 23,000, hemoglobin 15.3 and stable, and platelets 241. Microbiology, none. ASSESSMENT: 1. Pancreatitis, likely biliary, resolving. 2. Liver function tests remain elevated, leukocytosis persists. Differential diagnosis would include retained stone, cholangitis, bile leak. Recommendations: ERCP today. Risks, benefits, and possible complications including perforation, reaction to medication, and aspiration discussed with the patient. He understands and indicated to proceed. 3. Pancreatitis is improved. We would keep on aggressive fluid resuscitation. Depending on findings of ERCP, may decrease IV fluid rate. BUN, creatinine, and hemoglobin all remained stable and trended in a direction that indicates adequate resuscitation. Job ID: [id number]
--- NOTE | 2020-05-11 12:27 | RAD ---
EXAM: XR ERCP PROVIDED CLINICAL HISTORY: Post cholecystectomy. COMPARISON: None FINDINGS/IMPRESSION: 9 intraoperative fluoroscopic images of the right upper quadrant are submitted. Surgical clips are se en overlying the right upper quadrant related to patient's history of cholecystectomy. Subsequent imaging demonstrates cannulation of the common duct with opacification of the common duct and intrahe patic ducts. No biliary ductal dilatation is appreciated. No definitive filling defect is seen within the opacified portions of the common duct. However, no images demonstrating free spill of cont rast into the duodenum are provided. Final image demonstrates an endostent in place in the distal common duct. Correlation with intraoperative findings is recommended.
--- NOTE | 2020-05-11 13:09 | OP ---
DATE OF PROCEDURE: 05/11/2020 PREPROCEDURE DIAGNOSES: 1. Pancreatitis, likely biliary improving. 2. Leukocytosis, low-grade fever and persistently elevated LFTs concerning for cholangitis, retained common duct stone or bile leak. PROCEDURES: Endoscopic retrograde cholangiopancreatography, sphincterotomy, and placement of stent. POSTPROCEDURE DIAGNOSES: 1. Suspected bile leak. No choledocholithiasis. 4 mm common bile duct. 2. Study limited by body habitus and difficulty with radiographic imaging secondary to body habitus. 3. Suspected bile leak. 4. A 7.5 5-cm stent placement in the distal common bile duct. ANESTHESIA: General endotracheal anesthesia. Indocin 100 mg given prophylactically as well as Levaquin 500 mg. PROCEDURE IN DETAIL: After the patient was informed of the risk, benefits, and possible complications of endoscopy including perforation, bleeding, reaction to medication, aspiration informed consent was obtained. The patient was brought to endoscopy suite, where he was intubated and then once his airway was secured, placed in a prone position carefully on the fluoroscopy table. A residential installer film was obtained showing his body habitus, giving us a really difficult time of even visualizing the clips in the right upper quadrant from his recent cholecystectomy last week. The side-viewing endoscope was advanced through the bite block into the esophagus stomach and second portion of the duodenum where the ampulla was brought into view. There was significant edema submucosal in the duodenum consistent with his pancreatitis. Ampulla was identified. There was clear bile emanating from it, it was very small free cannulation was obtained with assistance of a floppy guidewire. Cholangiogram showed what appears to be a bile leak with the degraded fluoroscopy images secondary to body habitus. It is unclear if this is coming from the upper right hepatic duct of [place] or the cystic duct stump. No filling defects were seen. No pus was noted in the bile. It was clear and yellow. A sphincterotomy was performed over a guidewire. An 8 mm balloon was used and occlusion cholangiogram was performed showing more inflammation of some contrast around the clips in the right upper quadrant. Again, I cannot be certain there is a bile leak there, but that is my clinical suspicion because there are no stones or filling defects in the bile duct. There was no evidence of common bile duct injury. There was good filling of the intrahepatic ducts bilaterally. At this point time, the duct was swept several times. No stones or debris coming through and good spontaneous drainage of contrast. Decision was made to place a stent for the suspected bile leak and a 7.5-[place] 5 cm stent was placed under fluoroscopic and video guidance with good drainage documented afterwards both endoscopically and fluoroscopic. The scope was removed, the patient tolerated the procedure well. There were no complications. Job ID: [id number]
[2020-05-11] MEDS: Enoxaparin Sodium 40 MG/0.4 ML SYRINGE SC SCH (21:01)
[2020-05-12] MEDS: Ketorolac Tromethamine 30 MG/ML VIAL IVP SCH ×3 (05:05→18:16)
[2020-05-12] MEDS: Famotidine/PF 20 mg/2ml Vial SLOW IVP SCH (08:21)
[2020-05-12 09:19] LABS: #Basophils 0.1 thou/uL (0.0-0.2); #Eosinphils 0.1 thou/uL (0.0-0.7); #Lymphocytes 1.6 thou/uL (1.20-3.40); #Monocytes 1.8 thou/uL (0.11-0.59); #Neutrophils 18.9 thou/uL (1.40-6.50); %Basophils 0.3 % (0.0-1.0); %Eosinophils 0.5 % (0.0-10.0); %Lymphocytes 7.1 % (21.0-51.0); %Neutrophils 84.1 % (42.0-75.0); Hemoglobin 13.3 g/dL (14.0-18.0); Mean Corpuscular HGB CONC 33.2 g/dL (32.0-36.0); Mean Corpuscular Hemoglobin 30.9 pg (27.0-31.0); Mean Platelet Volume 8.3 fL (7.4-10.4); Platelet Count 185 thou/uL (130-400); RBC Distribution Width 12.7 % (11.5-14.5); Red Blood Cell (RBC) Count 4.31 mill/uL (4.70-6.10); White Blood Cell (WBC) Count 22.4 thou/uL (4.8-10.8)
[2020-05-12 09:30] LABS: ALT (SGPT) 146 U/L (8-55); AST (SGOT) 32 U/L (5-34); Albumin 2.9 g/dL (3.5-5.0); Alkaline Phosphatase 343 U/L (40-110); Anion Gap 15 mmol/L (10-20); BUN (Urea Nitrogen) 16 mg/dL (8.9-20.6); Bilirubin, Total 7.6 mg/dL (0.2-1.2); Calc. Creatinine Clearance 246 mL/min (70-130); Calcium 8.5 mg/dL (7.8-10.44); Carbon Dioxide 20 mmol/L (22-29); Chloride 103 mmol/L (98-107); Globulin 3.4 g/dL (2.4-3.5); Glucose 103 mg/dL (70-105); Lipase 247 U/L (8-78); Magnesium 1.9 mg/dL (1.6-2.6); Protein, Total 6.3 g/dL (6.0-8.3); Sodium 134 mmol/L (136-145)
[2020-05-12 09:55] LABS: Phosphorus 1.8 mg/dL (2.3-4.7)
--- NOTE | 2020-05-12 17:51 | PRG ---
DATE OF SERVICE: 05/12/2020 SUBJECTIVE: Roe Escobar is doing well. Over the weekend, he underwent an ERCP. He is refusing to ambulate despite nursing and my encouragement to do so. He still is hurting but feels better than he did when he was admitted. OBJECTIVE: VITAL SIGNS: Temperature 97.9 degrees, pulse 92, blood pressure 174/102. LUNGS: Clear to auscultation. CARDIAC: Regular rate and rhythm without murmur or gallop. ABDOMEN: Soft, mild tenderness but not rigid as before. EXTREMITIES: Unremarkable. [place]: [place] [id number], hemoglobin 13, bilirubin 7.6. Lipase is down to 247. ASSESSMENT AND PLAN: Post cholecystectomy pancreatitis. CAT scan did not reveal any free fluid which is inconsistent with a bile leak. Dr. Ba performed an ERCP, thought he might have seen a bile leak. No evidence of choledocholithiasis appreciated. CAT scan did not reveal biliary dilatation. Overall, the patient seems to be doing better. We will continue to monitor him and encourage ambulation which he has refused today. He is tolerating full liquids. He continues on Levaquin. IV fluids are TKO. We will recheck his labs in the morning. Hopefully, can be discharged home in the next day or two. Job ID: [id number]
[2020-05-12] MEDS: hydrALAZINE 20 MG/ML VIAL SLOW IVP PRN (18:17)
[2020-05-12] MEDS ORDERED: Potassium Phosphate 15 MMOL in Sodium Chloride 0.9% 250 ML 250 ML IVPB SCH (19:15)
[2020-05-12] MEDS: Enoxaparin Sodium 40 MG/0.4 ML SYRINGE SC SCH (20:50)
[2020-05-13] MEDS: Ketorolac Tromethamine 30 MG/ML VIAL IVP SCH ×4 (00:32→18:20)
--- NOTE | 2020-05-13 06:57 | PRG ---
DATE OF SERVICE: 05/12/2020 SUBJECTIVE: Mr. Escobar still has some abdominal discomfort, though it is better than yesterday and the day before. He is on Pepcid, Lovenox, Toradol, levofloxacin p.r.n. morphine, Zofran. OBJECTIVE: VITAL SIGNS: Temperature 98, pulse 82, blood pressure 168/92. GENERAL: He is resting comfortably on the side of the bed. He is still a little bit groggy. LUNGS: Clear. HEART: Regular rate and rhythm without clicks or murmurs. ABDOMEN: Soft, mildly tender in the epigastrium with no rebound or guarding. EXTREMITIES: Reveal slight edema. LABORATORY DATA: White count 22,000, hemoglobin 13.3, platelet count 185. Sodium 134, potassium 4, BUN and creatinine 16 and 0.82, bilirubin 7.6, at its height it was 8.7, AST has come down to 32, ALT down to 146, and alkaline phosphatase has come down to 343. Lipase 247. Phosphorus is 1.8 today and replaced. ASSESSMENT: 1. Biliary pancreatitis after laparoscopic cholecystectomy last week. 2. ERCP yesterday showed no evidence of stones in the bile duct and a very small common bile duct. There seemed to be a faint bile leak. Stent was placed after sphincterotomy. There was no evidence of ductal damage. RECOMMENDATIONS: Go ahead and stop the Toradol, but we will leave that up to General Surgery. We will change his Pepcid to Protonix for ulcer prophylaxis since he is on Toradol for now. We will follow with you. Job ID: [id number]
[2020-05-13 08:26] LABS: #Eosinphils 0.1 thou/uL (0.0-0.7); #Lymphocytes 1.6 thou/uL (1.20-3.40); #Monocytes 1.7 thou/uL (0.11-0.59); #Neutrophils 13.9 thou/uL (1.40-6.50); %Basophils 0.3 % (0.0-1.0); %Eosinophils 0.6 % (0.0-10.0); %Lymphocytes 9.3 % (21.0-51.0); %Neutrophils 79.8 % (42.0-75.0); Mean Corpuscular HGB CONC 33.2 g/dL (32.0-36.0); Mean Corpuscular Volume 93.4 fL (78.0-98.0); Mean Platelet Volume 8.3 fL (7.4-10.4); Platelet Count 252 thou/uL (130-400); RBC Distribution Width 12.6 % (11.5-14.5); White Blood Cell (WBC) Count 17.4 thou/uL (4.8-10.8)
[2020-05-13 08:33] LABS: ALT (SGPT) 108 U/L (8-55); AST (SGOT) 35 U/L (5-34); Albumin 2.9 g/dL (3.5-5.0); Alkaline Phosphatase 346 U/L (40-110); Anion Gap 16 mmol/L (10-20); BUN (Urea Nitrogen) 15 mg/dL (8.9-20.6); Calc. Creatinine Clearance 262 mL/min (70-130); Calcium 8.8 mg/dL (7.8-10.44); Carbon Dioxide 20 mmol/L (22-29); Chloride 102 mmol/L (98-107); Globulin 3.4 g/dL (2.4-3.5); Glucose 83 mg/dL (70-105); Lipase 10 U/L (8-78); Phosphorus 2.4 mg/dL (2.3-4.7); Potassium 3.9 mmol/L (3.5-5.1); Protein, Total 6.3 g/dL (6.0-8.3); Sodium 134 mmol/L (136-145)
[2020-05-13] MEDS ORDERED: Pantoprazole 40 MG VIAL IVP SCH (09:00)
[2020-05-13] MEDS: hydrALAZINE 20 MG/ML VIAL SLOW IVP PRN (16:44)
[2020-05-13] MEDS ORDERED: traMADol HCl 50 MG TAB PO PRN (18:11)
[2020-05-13] MEDS ORDERED: Acetaminophen 500 MG TAB PO PRN (18:11)
--- NOTE | 2020-05-13 18:13 | PRG ---
DATE OF SERVICE: 05/13/2020 SUBJECTIVE: Mr. Escobar has no abdominal pain and wants to go home. He is not very interactive. He has no nausea or vomiting. Tolerating full liquids. OBJECTIVE: VITAL SIGNS: Temperature 97.9, pulse 72, blood pressure 180/95. GENERAL: He is in no acute distress. LUNGS: Clear to auscultation bilaterally. HEART: Regular rate and rhythm without murmur. ABDOMEN: Soft, nontender, and nondistended. Bowel sounds are present. EXTREMITIES: No lower extremity edema. LABORATORY DATA: Creatinine 0.77, bilirubin 10.0, AST 35, ALT 108, alkaline phosphatase 346, and albumin 2.9. White blood cell count 17.4, hemoglobin 13.0, and platelets 252. IMPRESSION: 1. Biliary pancreatitis, improved. 2. Possible mild bile leak status post sphincterotomy and biliary stent. 3. Abnormal liver test. His bilirubin increased to 10 today. It is possible that he has some underlying chronic liver disease given his past alcohol use and potential for fatty liver with obesity that could have decompensated following cholecystectomy. He is not ready for discharge home as of yet. We will want to recheck the trend of his liver tests and bilirubin tomorrow. RECOMMENDATIONS: 1. Check LFTs in the morning. 2. He is tolerating a full liquid diet. He can likely advance to a low-fat diet tomorrow or as General Surgery recommends. Job ID: [id number]
--- NOTE | 2020-05-13 18:47 | PRG ---
DATE OF SERVICE: 05/13/2020 SUBJECTIVE: Roe Escobar is doing well today. He states he is feeling somewhat better. He is at bed whenever I walked in the room, but states he has walked in the hallways, although nurses state he has been reluctant to walk and wants to stay in bed. OBJECTIVE: VITAL SIGNS: Temperature 97.9 degrees, blood pressure 180/95. LUNGS: Clear to auscultation. CARDIAC: Regular rate and rhythm without murmur or gallop. ABDOMEN: Obese, soft. LABORATORY DATA: White count down to 17 from 22 yesterday. Basic metabolic profile is normal with bilirubin up to 10, down from 7.6 yesterday and 8.4 the day before. AST and ALT are improving. Alkaline phosphatase is stable. Lipase is down to 10. ASSESSMENT AND PLAN: Postoperative liver function test elevation. Recheck his liver function test tomorrow. Hopefully, can be discharged home tomorrow. He is on full liquids, advance him to a regular diet, and saline lock him and plan to discharge home tomorrow. Job ID: [id number]
[2020-05-13] MEDS: traMADol HCl 50 MG TAB PO PRN (20:49)
[2020-05-13] MEDS: Enoxaparin Sodium 40 MG/0.4 ML SYRINGE SC SCH (20:50)
[2020-05-13] MEDS: Ibuprofen 600 MG TAB PO PRN (23:02)
[2020-05-14] MEDS: traMADol HCl 50 MG TAB PO PRN (05:24)
[2020-05-14 07:40] LABS: #Basophils 0.1 thou/uL (0.0-0.2); #Eosinphils 0.3 thou/uL (0.0-0.7); #Lymphocytes 1.7 thou/uL (1.20-3.40); #Monocytes 1.9 thou/uL (0.11-0.59); #Neutrophils 13.2 thou/uL (1.40-6.50); %Basophils 0.3 % (0.0-1.0); %Eosinophils 1.6 % (0.0-10.0); %Lymphocytes 9.9 % (21.0-51.0); %Monocytes 10.9 % (0.0-10.0); %Neutrophils 77.3 % (42.0-75.0); Hemoglobin 13.5 g/dL (14.0-18.0); Mean Corpuscular HGB CONC 33.3 g/dL (32.0-36.0); Mean Corpuscular Hemoglobin 31.2 pg (27.0-31.0); Mean Corpuscular Volume 93.8 fL (78.0-98.0); Mean Platelet Volume 8.3 fL (7.4-10.4); Platelet Count 284 thou/uL (130-400); RBC Distribution Width 12.9 % (11.5-14.5); Red Blood Cell (RBC) Count 4.34 mill/uL (4.70-6.10); White Blood Cell (WBC) Count 17.1 thou/uL (4.8-10.8)
[2020-05-14 07:58] LABS: ALT (SGPT) 89 U/L (8-55); AST (SGOT) 45 U/L (5-34); Alkaline Phosphatase 376 U/L (40-110); Anion Gap 15 mmol/L (10-20); BUN (Urea Nitrogen) 14 mg/dL (8.9-20.6); Bilirubin, Total 10.3 mg/dL (0.2-1.2); Calc. Creatinine Clearance 246 mL/min (70-130); Carbon Dioxide 22 mmol/L (22-29); Chloride 102 mmol/L (98-107); Globulin 3.5 g/dL (2.4-3.5); Glucose 93 mg/dL (70-105); Iron 28 ug/dL (65-175); Iron Binding Capacity, Total 185 mcg/dL (261-462); Potassium 3.6 mmol/L (3.5-5.1); Protein, Total 6.5 g/dL (6.0-8.3); Sodium 135 mmol/L (136-145)
[2020-05-14 08:15] LABS: Ferritin 802.06 ng/mL (22-322)
[2020-05-14 08:17] LABS: INR-International Normal Ratio 1.1; Prothrombin Time 14.5 sec (12.0-14.7)
[2020-05-14 08:29] LABS: HBCM Index 0.46 S/CO (0-0.79); HBSAg Index 0.18 S/CO (0-0.99); Hep B Surf Ag Non-Reactive S/CO (NonReactive); Hep C IgG Ab Non-Reactive (NonReactive); Hep C Index 0.19 S/CO (0-0.79); Hepatitis B Core IgM Abs Non-Reactive (NonReactive)
[2020-05-14] MEDS ORDERED: Polyethylene Glycol 3350 17 GM Packet PO SCH (09:00)
[2020-05-14 09:21] LABS: Hep B Core Total Ab Reactive (NonReactive); Hep B Surf AB Reactive (NonReactive)
[2020-05-14 09:25] LABS: HBSAB Concentration 8836.45 mIU/mL
[2020-05-14 09:26] LABS: Hep B Core Total Index 9.87 S/CO (0-0.79)
--- NOTE | 2020-05-14 11:25 | PRG ---
DATE OF SERVICE: 05/14/2020 SUBJECTIVE: Mr. Escobar says he is feeling a bit better. He still requiring tramadol for abdominal pain, but he says it has lessened. No nausea or vomiting. He tolerated some aches this morning. He has been ambulating around the halls. OBJECTIVE: VITAL SIGNS: Temperature 98.1, pulse 75, blood pressure 153/93, 99% oxygen saturation on room air. GENERAL: No acute distress, lying in bed comfortably. HEART: Regular rate and rhythm. LUNGS: Clear to auscultation bilaterally. ABDOMEN: Obese. Mild distention. Bowel sounds hypoactive, but present. EXTREMITIES: No peripheral edema. LABORATORY STUDIES: WBC 17.1, hemoglobin 13.5, platelets 284. INR 1.1. Sodium 135, potassium 3.6, BUN 14, creatinine 0.82. Lipase had normalized as of yesterday down to 10. LFTs are essentially stably elevated today. Total bilirubin 10.3, alkaline phosphatase 376, AST 45, ALT down to 89. Ferritin 802, iron 28, TIBC is 185. Hepatitis B surface antigen is negative. Hepatitis B surface antibody is positive. Hepatitis B core IgM is negative. Core total antibody is reactive. Hepatitis C antibody negative. Hepatitis A serology is pending. ASSESSMENT AND PLAN: 1. Postoperative bile leak, now status post successful endoscopic retrograde cholangiopancreatography with biliary stent placement. 2. Biliary pancreatitis, clinically resolved. 3. Abnormal liver tests. LFTs remain elevated, but essentially stable over the past day. Bilirubin up to 10.3. Agree with Dr. Carnes. It is possible that there is some underlying chronic liver disease, probably fatty liver disease. On the other hand, there is no evidence of coagulopathy with normal INR 1.1, and platelets are also normal. I suspect that it may just take some time for liver tests to trend down to normal following this bile leak events. We would still like to see the LFTs began to down trend. Repeat LFTs tomorrow if the patient is going to remain in the hospital. I think it would be reasonable to consider hospital discharge today, but if so, the patient will need close followup within the next week for repeat labs including LFTs. Job ID: [id number] [facility]
[2020-05-14] MEDS: Ibuprofen 600 MG TAB PO PRN (13:52)
[2020-05-14 16:53] VITALS: BP 166/89; TEMP 97.9
--- NOTE | 2020-05-14 23:48 | DIS ---
DATE OF ADMISSION: 05/09/2020 DATE OF DISCHARGE: 05/14/2020 DISCHARGE DIAGNOSES: 05/05/2020, laparoscopic cholecystectomy. 05/11/2020, ERCP, sphincterotomy, stent placement. Questionable bile leak, nondilated bile ducts. No stones appreciated. Pathology from the surgical specimen, 05/05/2020, read out. Chronic acute cholecystitis, cholesterolosis. Discharge hemoglobin 13, white count 17. Discharge bilirubin 10.3, AST and ALT 45 and 89 respectfully, alkaline phosphatase 376. Admission lipase 4926. Discharge lipase 10. COVID negative. Reactive hepatitis B surface antibody. COVID negative 05/09/2020. HISTORY: Roe Escobar presented to the emergency room with acute cholecystitis, cholelithiasis, underwent laparoscopic video cholecystectomy date noted above. He was discharged home but returned on this admission with abdominal pain. CAT scan revealing pancreatitis. There was no free fluid appreciated. Bile ducts were not dilated. The patient was observed. His pancreatitis improved. Lipase returned and normal. Bilirubin on admission was 6, it continued to climb, however, during the hospitalization was discharged home with 10.3, it was felt that he had some inherent liver disease contributing to this probably fatty liver, obesity. The patient did undergo in this hospitalization ERCP. There was a questionable bile leak, although no free fluid seen on his CAT scan, question. There were no stones found on ERCP. Generous sphincterotomy stent placed. The patient is to have repeat liver function tests on the day of followup visit in my office in 2 weeks. Follow up with in three weeks. He will need a stent removed in the future. Diet and activity as tolerated. No lifting restrictions. He is given Ultram #30 and encouraged to take Tylenol and Advil for pain. He is to resume his home medications tramadol, ibuprofen, Tylenol. Job ID: [id number]
== END 2020-05-14 17:53 | disposition home or self-care (01) | DRG 393 ==
LOC: ERS 14:34 → SURG B 16:54
PROVIDERS: ADMIT Specialist; ATTEND Specialist
PROC: 0F798DZ Dilation of Common Bile Duct with Intraluminal Device, Via Natural or Artificial Opening Endoscopic (ICD-10-PCS; principal; 2020-05-09)
PROC: BF101ZZ Fluoroscopy of Bile Ducts using Low Osmolar Contrast (ICD-10-PCS; 2020-05-09)
DX: K91.89 Other postprocedural complications and disorders of digestive system (principal); K85.10 Biliary acute pancreatitis without necrosis or infection; K83.1 Obstruction of bile duct; Z68.41 Body mass index [BMI] 40.0-44.9, adult; K81.2 Acute cholecystitis with chronic cholecystitis; Z20.822 Contact with and (suspected) exposure to COVID-19; E66.9 Obesity, unspecified; Y83.8 Other surgical procedures as the cause of abnormal reaction of the patient, or of later complication, without mention of misadventure at the time of the procedure; Z87.891 Personal history of nicotine dependence; Z90.49 Acquired absence of other specified parts of digestive tract
CPT/HCPCS: 36415; 74177; 74330; 80053; 81003; 82550; 82728; 83540; 83550; 83605; 83690; 83735; 84100; 84484; 85025; 85610; 86704; 86705; 86706; 86709; 86803; 87340; 87635; 93005; 96374; 96375; C9113; J0360; J1100; J1610; J1650; J1885; J1956; J2270; J2405; J2704; J3010; J7050; Q9967; S0028; U0003; U0005

== ENCOUNTER 2020-06-20 12:56 | Outpatient (CLI) | payer SELFPAY ==
[2020-06-21 02:32] LABS: SARS-CoV-2 PCR by NAA Not Detected (NotDetected)
== END 2020-06-20 12:57 | disposition home or self-care (01) ==
LOC: LABBT 12:56
PROVIDERS: ATTEND Internal Medicine Gastroenterology
DX: K85.90 Acute pancreatitis without necrosis or infection, unspecified (principal)
CPT/HCPCS: 87635; U0003; U0005

== ENCOUNTER 2020-06-25 07:01 | Day surgery (SDC) | payer OTHER, SELFPAY ==
[2020-06-25] MEDS ORDERED: Indomethacin 50 MG SUPP ONE (07:34)
[2020-06-25] MEDS ORDERED: Iothalamate Meglumine 60% 50 ML VIAL FS ONE (07:36)
[2020-06-25] MEDS ORDERED: Fentanyl 100 MCG/2 ML VIAL ONE (08:19)
[2020-06-25] MEDS ORDERED: SUGAMMADEX SODIUM 200 MG/2 ML VIAL ONE (08:59)
--- NOTE | 2020-06-25 09:29 | OP ---
DATE OF PROCEDURE: 06/25/2020 PROCEDURE PERFORMED: Endoscopic retrograde cholangiopancreatography. PREPROCEDURE DIAGNOSES: 1. History of recent gallstone pancreatitis. 2. History of elevated LFTs with bile leak, resolved with stent placement. POSTPROCEDURE DIAGNOSES: 1. Retained gastric contents. 2. Stent that had been in place and removed. 3. Cholangiogram shows no filling defects or stones. Duct swept three times with no abnormalities. RECOMMENDATIONS: 1. Resume regular activity. 2. Avoid all alcohol. 3. Recheck comprehensive metabolic profile and lipase. ANESTHESIA: General endotracheal anesthesia. DESCRIPTION OF PROCEDURE: After the patient was informed of the risks, benefits, and possible complications of endoscopy including perforation, bleeding, reaction to medication, aspiration as well as the indication for stent removal, informed consent was obtained. The patient was brought to the endoscopy suite, where he was sedated in gradual fashion. He was intubated and placed in prone position on the fluoroscopy table. Once he was in proper position, a bite block was placed in the incisural orifice. The side-viewing duodenoscope was advanced to the esophagus, stomach, into the second and third portions of the duodenum. A ems instructor film was obtained showing the stent in the proper position. The stent was able to be visualized, although there was retained food in the stomach and some of the duodenum which precluded full visualization exam. The stent was grasped with a snare, removed from the patient, and then the scope was reinserted and the ampulla was brought back into view and a cholangiogram was performed with a 9 mm balloon and a 12 mm balloon with no filling defects or signs of bile leak. The duct was swept three times with no debris. The scope was removed. The patient tolerated the procedure well. There were no complications. Job ID: [id number]
[2020-06-25] MEDS ORDERED: Rocuronium Bromide 10 MG/ML (10ML VIAL) ONE (09:47)
[2020-06-25] MEDS ORDERED: Succinylcholine 200 MG/10 ml SYRINGE FS ONE (09:47)
[2020-06-25] MEDS ORDERED: Ondansetron PF 4 MG/2 ML Vial ONE (09:47)
[2020-06-25] MEDS ORDERED: PROPOFOL 200 MG/20 ML VIAL ONE (09:47)
[2020-06-25] MEDS ORDERED: Lidocaine 1% PF 5 ML VIAL ONE (09:47)
[2020-06-25] MEDS ORDERED: Dexamethasone 20 MG/5 ML VIAL ONE (09:47)
[2020-06-25 09:58] LABS: Hemoglobin 13.2 g/dL (14.0-18.0); Mean Corpuscular HGB CONC 33.2 g/dL (32.0-36.0); Mean Corpuscular Hemoglobin 30.8 pg (27.0-31.0); Mean Corpuscular Volume 92.5 fL (78.0-98.0); Platelet Count 250 thou/uL (130-400); RBC Distribution Width 13.8 % (11.5-14.5); Red Blood Cell (RBC) Count 4.29 mill/uL (4.70-6.10); White Blood Cell (WBC) Count 7.5 thou/uL (4.8-10.8)
[2020-06-25 10:15] LABS: ALT (SGPT) 21 U/L (8-55); AST (SGOT) 15 U/L (5-34); Albumin 3.5 g/dL (3.5-5.0); Alkaline Phosphatase 103 U/L (40-110); Anion Gap 12 mmol/L (10-20); BUN (Urea Nitrogen) 17 mg/dL (8.9-20.6); Bilirubin, Total 0.6 mg/dL (0.2-1.2); Calc. Creatinine Clearance 0 mL/min (70-130); Calcium 8.4 mg/dL (7.8-10.44); Carbon Dioxide 23 mmol/L (22-29); Chloride 106 mmol/L (98-107); Globulin 2.7 g/dL (2.4-3.5); Glucose 104 mg/dL (70-105); Lipase 10 U/L (8-78); Potassium 4.3 mmol/L (3.5-5.1); Protein, Total 6.2 g/dL (6.0-8.3); Sodium 137 mmol/L (136-145)
[2020-06-25 10:22] LABS: Band 2 % (5-11); Lymphocytes 42 % (21-51); MDiff Complete? YES; Monocytes 8 % (0-10); Neutrophil 48 % (42-75); RBC Morphology Normal
--- NOTE | 2020-06-25 10:49 | RAD ---
EXAM: ERCP HISTORY: Cholelithiasis COMPARISON: 05/11/2020 FINDINGS/IMPRESSION: Limited intraoperative fluoroscopic views were taken during a an ERCP. The common bile duct is normal in caliber with an apparent filling defect on the first image. This is not seen on the latter images and may have represented an air bubble. No leakage from the common bile duct. No abnormality of the intrahepatic bile ducts.
== END 2020-06-25 11:03 | disposition home or self-care (01) ==
LOC: SDC 07:01
PROVIDERS: ATTEND Internal Medicine Gastroenterology
PROC: 0FJB8ZZ Inspection of Hepatobiliary Duct, Via Natural or Artificial Opening Endoscopic (ICD-10-PCS; principal; 2020-06-25)
DX: K85.10 Biliary acute pancreatitis without necrosis or infection (principal); Z79.899 Other long term (current) drug therapy; Z87.891 Personal history of nicotine dependence
CPT/HCPCS: 36415; 74330; 80053; 83690; 85007; 85027; J1100; J1610; J2405; J2704; J3010

== ENCOUNTER 2020-12-26 05:07 | Inpatient (IN) | payer OTHER, SELFPAY ==
[2020-12-26] MEDS ORDERED: Ondansetron PF 4 MG/2 ML Vial ONE (05:38)
[2020-12-26 05:58] LABS: #Basophils 0.1 thou/uL (0.0-0.2); #Eosinphils 0.1 thou/uL (0.0-0.7); #Monocytes 2.1 thou/uL (0.11-0.59); #Neutrophils 10.5 thou/uL (1.40-6.50); %Basophils 0.7 % (0.0-1.0); %Eosinophils 0.6 % (0.0-10.0); %Lymphocytes 27.9 % (21.0-51.0); %Monocytes 11.8 % (0.0-10.0); %Neutrophils 58.9 % (42.0-75.0); Hemoglobin 15.5 g/dL (14.0-18.0); Mean Corpuscular HGB CONC 36.1 g/dL (32.0-36.0); Mean Corpuscular Hemoglobin 32.7 pg (27.0-31.0); Mean Corpuscular Volume 90.5 fL (78.0-98.0); Mean Platelet Volume 7.7 fL (7.4-10.4); Platelet Count 343 thou/uL (130-400); RBC Distribution Width 12.7 % (11.5-14.5); Red Blood Cell (RBC) Count 4.75 mill/uL (4.70-6.10); White Blood Cell (WBC) Count 17.8 thou/uL (4.8-10.8)
[2020-12-26 06:20] LABS: ALT (SGPT) 39 U/L (8-55); AST (SGOT) 30 U/L (5-34); Albumin 4.7 g/dL (3.5-5.0); Alkaline Phosphatase 142 U/L (40-110); Anion Gap 17 mmol/L (10-20); BUN (Urea Nitrogen) 40 mg/dL (8.9-20.6); Bilirubin, Total 0.7 mg/dL (0.2-1.2); CK (CPK) 641 U/L (30-200); Calc. Creatinine Clearance 0 mL/min (70-130); Carbon Dioxide 23 mmol/L (22-29); Chloride 99 mmol/L (98-107); Globulin 3.7 g/dL (2.4-3.5); Glucose 116 mg/dL (70-105); Potassium 3.9 mmol/L (3.5-5.1); Protein, Total 8.4 g/dL (6.0-8.3); Sodium 135 mmol/L (136-145)
[2020-12-26] MEDS ORDERED: Ibuprofen 800 MG TAB ONE (07:05)
[2020-12-26] MEDS ORDERED: Acetaminophen 325 MG TAB PO PRN (11:54)
[2020-12-26] MEDS ORDERED: Senokot S 8.6-50 MG TAB PO PRN (11:54)
[2020-12-26] MEDS ORDERED: Ondansetron PF 4 MG/2 ML Vial IVP PRN (11:54)
[2020-12-26] MEDS ORDERED: hydrALAZINE 20 MG/ML VIAL SLOW IVP PRN (12:39)
[2020-12-26] MEDS ORDERED: VANCOMYCIN 2 GRAM/400 ML BAG 2 GM in Premix Bag 1 BAG IVPB SCH (12:45)
[2020-12-26 13:03] LABS: SARS-CoV-2 NAA Rapid Test Not Detected (NotDetected)
[2020-12-26] MEDS ORDERED: hydrALAZINE 20 MG/ML VIAL ONE (13:05)
[2020-12-26 15:23] LABS: Lactic Acid 1.9 mmol/L (0.5-2.2)
[2020-12-26 15:23] LABS: Anion Gap 18 mmol/L (10-20); BUN (Urea Nitrogen) 34 mg/dL (8.9-20.6); Calc. Creatinine Clearance 74 mL/min (70-130); Calcium 9.4 mg/dL (7.8-10.44); Carbon Dioxide 18 mmol/L (22-29); Chloride 104 mmol/L (98-107); Glucose 104 mg/dL (70-105); Potassium 4.2 mmol/L (3.5-5.1); Sodium 136 mmol/L (136-145)
[2020-12-26] MEDS: Enoxaparin Sodium 40 MG/0.4 ML SYRINGE SC SCH (15:45)
[2020-12-26] MEDS: Cefepime 2 GM in Sodium Chloride 0.9% 100 ML IVPB SCH (15:46)
[2020-12-26] MEDS: Dextrose 5 %-0.45 % NaCl 1,000 ML IV SCH ×2 (15:46→16:46)
[2020-12-26] MEDS: Sodium Chloride 0.9% 1,000 ML IV SCH ×2 (20:36→23:42)
[2020-12-26 22:38] LABS: Bilirubin Negative (Negative); Blood, Urine 1+ (Negative); Clarity Clear (Clear); Glucose, Urine (Dipstick) Normal (Negative); Ketone, Urine Negative (Negative); Leukocyte Negative Leu/uL (Negative); Mucous/LPF Rare LPF (<2+); Nitrite Negative (Negative); Protein, Urine (Dipstick) 30 mg/dL (Neg-Trace); RBC/HPF 0-3 HPF (0-3); Specific Gravity, Urine 1.021 (1.002-1.036); Squamous Epithelial 0-3 HPF (0-3); Urobilinogen Normal mg/dL (Less than 2)
[2020-12-26 22:41] LABS: Amphetamine Detected (NotDetected); Barbiturates Screen Not Detected (NotDetected); Benzodiazepine Screen Not Detected (NotDetected); Cocaine Metabolite Screen Not Detected (NotDetected); Methadone Not Detected (NotDetected); Methamphetamine Detected (NotDetected); Opiate Screen Detected (NotDetected); Oxycodone Screen Not Detected (NotDetected); Phencyclidine (PCP) Not Detected (NotDetected); THC/Cannabinoid Screen Not Detected (NotDetected); Tricyclic Screen Not Detected (NotDetected)
[2020-12-26 22:52] LABS: Bacteria/HPF Rare-Few HPF (None Seen); Urine Culture Reflex Yes Yes
[2020-12-27] MEDS: Sodium Chloride 0.9% 1,000 ML IV SCH ×3 (06:13→21:07)
[2020-12-27 07:27] LABS: #Basophils 0.1 thou/uL (0.0-0.2); #Eosinphils 0.3 thou/uL (0.0-0.7); #Lymphocytes 3.6 thou/uL (1.20-3.40); #Neutrophils 3.4 thou/uL (1.40-6.50); %Basophils 1.2 % (0.0-1.0); %Eosinophils 3.5 % (0.0-10.0); %Monocytes 11.6 % (0.0-10.0); %Neutrophils 40.7 % (42.0-75.0); Hemoglobin 13.4 g/dL (14.0-18.0); Mean Corpuscular HGB CONC 34.9 g/dL (32.0-36.0); Mean Corpuscular Hemoglobin 31.8 pg (27.0-31.0); Mean Corpuscular Volume 91.2 fL (78.0-98.0); Mean Platelet Volume 8.1 fL (7.4-10.4); Platelet Count 263 thou/uL (130-400); RBC Distribution Width 12.7 % (11.5-14.5); Red Blood Cell (RBC) Count 4.22 mill/uL (4.70-6.10); White Blood Cell (WBC) Count 8.3 thou/uL (4.8-10.8)
[2020-12-27 08:11] LABS: ALT (SGPT) 26 U/L (8-55); AST (SGOT) 23 U/L (5-34); Albumin 3.5 g/dL (3.5-5.0); Alkaline Phosphatase 102 U/L (40-110); Anion Gap 13 mmol/L (10-20); BUN (Urea Nitrogen) 23 mg/dL (8.9-20.6); Bilirubin, Total 0.4 mg/dL (0.2-1.2); CK (CPK) 344 U/L (30-200); Calc. Creatinine Clearance 136 mL/min (70-130); Calcium 8.8 mg/dL (7.8-10.44); Carbon Dioxide 23 mmol/L (22-29); Chloride 106 mmol/L (98-107); Globulin 3.1 g/dL (2.4-3.5); Glucose 102 mg/dL (70-105); Potassium 3.7 mmol/L (3.5-5.1); Protein, Total 6.6 g/dL (6.0-8.3); Sodium 138 mmol/L (136-145)
[2020-12-27] MEDS: Enoxaparin Sodium 40 MG/0.4 ML SYRINGE SC SCH (08:42)
[2020-12-27] MEDS ORDERED: Pantoprazole 40 MG VIAL IVP SCH (09:00)
[2020-12-27] MEDS: Cefepime 2 GM in Sodium Chloride 0.9% 100 ML IVPB SCH (12:19)
[2020-12-27 12:29] LABS: Vancomycin, Random Less than 1.1 ug/mL (See Comment)
[2020-12-27] MEDS ORDERED: VANCOMYCIN 2 GRAM/400 ML BAG 2 GM in Premix Bag 1 BAG IVPB SCH (13:00)
[2020-12-28] MEDS ORDERED: Vancomycin 1.5 GRAM/300 ML BAG 1.5 GM in Premix Bag 1 BAG IVPB SCH (01:00)
[2020-12-28] MEDS: Sodium Chloride 0.9% 1,000 ML IV SCH (04:22)
[2020-12-28 05:11] VITALS: BMI 43.0
[2020-12-28 06:42] VITALS: TEMP 98.1
[2020-12-28 08:26] LABS: #Basophils 0.1 thou/uL (0.0-0.2); #Eosinphils 0.3 thou/uL (0.0-0.7); #Lymphocytes 3.2 thou/uL (1.20-3.40); #Monocytes 0.9 thou/uL (0.11-0.59); #Neutrophils 3.4 thou/uL (1.40-6.50); %Basophils 0.9 % (0.0-1.0); %Eosinophils 3.8 % (0.0-10.0); %Lymphocytes 41.3 % (21.0-51.0); %Monocytes 11.2 % (0.0-10.0); %Neutrophils 42.9 % (42.0-75.0); Mean Corpuscular HGB CONC 35.1 g/dL (32.0-36.0); Mean Corpuscular Hemoglobin 32.5 pg (27.0-31.0); Mean Corpuscular Volume 92.7 fL (78.0-98.0); Mean Platelet Volume 7.9 fL (7.4-10.4); Platelet Count 216 thou/uL (130-400); RBC Distribution Width 12.6 % (11.5-14.5); Red Blood Cell (RBC) Count 3.99 mill/uL (4.70-6.10); White Blood Cell (WBC) Count 7.8 thou/uL (4.8-10.8)
[2020-12-28 08:39] VITALS: BP 148/71
[2020-12-28 08:44] LABS: Anion Gap 10 mmol/L (10-20); BUN (Urea Nitrogen) 15 mg/dL (8.9-20.6); Calc. Creatinine Clearance 230 mL/min (70-130); Calcium 8.5 mg/dL (7.8-10.44); Carbon Dioxide 22 mmol/L (22-29); Chloride 110 mmol/L (98-107); Glucose 86 mg/dL (70-105); Potassium 4.2 mmol/L (3.5-5.1); Sodium 138 mmol/L (136-145)
[2020-12-28] MEDS ORDERED: Amlodipine 10 MG TAB PO SCH (09:00)
[2020-12-28] MEDS ORDERED: Amoxicillin/Potassium Clav 875 MG TAB PO SCH (09:00)
[2020-12-28] MEDS: Enoxaparin Sodium 40 MG/0.4 ML SYRINGE SC SCH (09:01)
[2020-12-29] MEDS ORDERED: Bacitracin 1 PK TOP SCH (09:00)
== END 2020-12-28 11:53 | disposition home or self-care (01) | DRG 683 ==
LOC: ERS 05:07 → ERHOLD 08:02 → T4-A 15:09
PROVIDERS: ADMIT Specialist; ATTEND Internal Medicine
DX: N17.9 Acute kidney failure, unspecified (principal); E87.1 Hypo-osmolality and hyponatremia; L03.115 Cellulitis of right lower limb; Z68.41 Body mass index [BMI] 40.0-44.9, adult; E86.0 Dehydration; G89.29 Other chronic pain; I10 Essential (primary) hypertension; R11.2 Nausea with vomiting, unspecified; F15.10 Other stimulant abuse, uncomplicated; E66.9 Obesity, unspecified; M54.9 Dorsalgia, unspecified; M10.9 Gout, unspecified; Z20.822 Contact with and (suspected) exposure to COVID-19; Z90.49 Acquired absence of other specified parts of digestive tract; Z98.890 Other specified postprocedural states; Z87.891 Personal history of nicotine dependence; Z71.51 Drug abuse counseling and surveillance of drug abuser
CPT/HCPCS: 0240U; 36415; 71046; 76770; 80048; 80053; 80202; 80306; 81001; 82550; 83605; 85025; 87040; 87086; 99285; J0360; J0692; J1650; J2405; J3370; J3490; J7042; J7050

== ENCOUNTER 2021-09-04 07:20 | Inpatient (IN) | payer SELFPAY ==
[2021-09-04 08:56] LABS: #Basophils 0.1 thou/uL (0.0-0.2); #Eosinphils 0.2 thou/uL (0.0-0.7); #Lymphocytes 2.9 thou/uL (1.20-3.40); #Monocytes 1.3 thou/uL (0.11-0.59); #Neutrophils 13.6 thou/uL (1.40-6.50); %Basophils 0.4 % (0.0-1.0); %Eosinophils 1.2 % (0.0-10.0); %Lymphocytes 15.8 % (21.0-51.0); %Monocytes 7.1 % (0.0-10.0); %Neutrophils 75.5 % (42.0-75.0); Hemoglobin 16.6 g/dL (14.0-18.0); Mean Corpuscular HGB CONC 34.1 g/dL (32.0-36.0); Mean Corpuscular Hemoglobin 32.1 pg (27.0-31.0); Mean Corpuscular Volume 94.1 fL (78.0-98.0); Mean Platelet Volume 7.3 fL (7.4-10.4); Platelet Count 268 thou/uL (130-400); RBC Distribution Width 12.4 % (11.5-14.5); Red Blood Cell (RBC) Count 5.18 mill/uL (4.70-6.10); White Blood Cell (WBC) Count 18.1 thou/uL (4.8-10.8)
[2021-09-04 09:16] LABS: ALT (SGPT) 188 U/L (8-55); AST (SGOT) 94 U/L (5-34); Albumin 4.1 g/dL (3.5-5.0); Alkaline Phosphatase 171 U/L (40-110); Anion Gap 16 mmol/L (10-20); BUN (Urea Nitrogen) 17 mg/dL (8.9-20.6); Bilirubin, Total 1.1 mg/dL (0.2-1.2); Calc. Creatinine Clearance 0 mL/min (70-130); Calcium 9.8 mg/dL (7.8-10.44); Carbon Dioxide 20 mmol/L (22-29); Chloride 103 mmol/L (98-107); Globulin 3.9 g/dL (2.4-3.5); Glucose 142 mg/dL (70-105); Potassium 3.9 mmol/L (3.5-5.1); Sodium 135 mmol/L (136-145)
[2021-09-04] MEDS ORDERED: Cefepime 2 GM VIAL ONE (09:32)
[2021-09-04] MEDS ORDERED: Iopamidol-370 76% 500 ML 1 ML ONE (09:45)
[2021-09-04] MEDS ORDERED: Vancomycin 1 GM in Premix Bag 1 BAG IVPB SCH ×3 (09:45→13:30)
[2021-09-04] MEDS ORDERED: Lidocaine 2% PF 5 ML VIAL ONE (10:22)
[2021-09-04] MEDS ORDERED: Fentanyl 100 MCG/2 ML VIAL ONE (10:30)
[2021-09-04] MEDS ORDERED: Ondansetron PF 4 MG/2 ML Vial ONE (10:30)
[2021-09-04] MEDS ORDERED: Vancomycin 1 GM/200 ML BAG ONE (11:08)
[2021-09-04] MEDS ORDERED: Ondansetron ODT 4 MG TAB PO PRN (11:15)
[2021-09-04] MEDS ORDERED: Enoxaparin Sodium 40 MG/0.4 ML SYRINGE SC SCH (11:15)
[2021-09-04] MEDS ORDERED: Ondansetron PF 4 MG/2 ML Vial IVP PRN (11:15)
[2021-09-04 11:32] LABS: Cardiac Risk 4.3 (Less than 4.5)
[2021-09-04] MEDS ORDERED: Piperacillin/Tazobactam 3.375 GM in Sodium Chloride 0.9% 100 ML IVPB SCH ×3 (12:00→18:00)
[2021-09-04 12:15] LABS: HIV (1/2) Antibody/Antigen Non-Reactive (NonReactive); HIV 1/2 INDEX 0.27 S/CO (<1.00)
[2021-09-04 12:29] LABS: HBCM Index 0.53 S/CO (0-0.79); Hep A IgM AB Non-Reactive (NonReactive); Hep A IgM S/CO 0.72 S/CO (0-0.79); Hep B Surf Ag Non-Reactive S/CO (NonReactive); Hep C IgG Ab Non-Reactive (NonReactive); Hepatitis B Core IgM Abs Non-Reactive (NonReactive)
[2021-09-04 13:36] VITALS: BMI 40.1
[2021-09-04] MEDS: Sodium Chloride 0.9% 1,000 ML IV SCH ×2 (14:26→17:55)
[2021-09-04] MEDS: Piperacillin/Tazobactam 3.375 GM in Sodium Chloride 0.9% 100 ML IVPB SCH (21:53)
[2021-09-04 23:05] LABS: Bacteria/HPF None Seen HPF (None Seen); Bilirubin Negative (Negative); Blood, Urine Negative (Negative); Clarity Clear (Clear); Glucose, Urine (Dipstick) Normal (Negative); Ketone, Urine Negative (Negative); Leukocyte Negative Leu/uL (Negative); Nitrite Negative (Negative); Protein, Urine (Dipstick) Negative (Neg-Trace); RBC/HPF 0-3 HPF (0-3); Specific Gravity, Urine 1.018 (1.002-1.036); Squamous Epithelial None Seen HPF (0-3); Urobilinogen Normal mg/dL (Less than 2); WBC/HPF None Seen HPF (0-3)
[2021-09-04 23:07] LABS: Urine Culture Reflex No No
[2021-09-04 23:12] LABS: Amphetamine Not Detected (NotDetected); Barbiturates Screen Not Detected (NotDetected); Benzodiazepine Screen Not Detected (NotDetected); Cocaine Metabolite Screen Not Detected (NotDetected); Methadone Not Detected (NotDetected); Methamphetamine Detected (NotDetected); Opiate Screen Detected (NotDetected); Oxycodone Screen Not Detected (NotDetected); Phencyclidine (PCP) Not Detected (NotDetected); THC/Cannabinoid Screen Not Detected (NotDetected); Tricyclic Screen Not Detected (NotDetected)
[2021-09-04] MEDS: VANCOMYCIN 2 GRAM/500 ML BAG 2 GM in Premix Bag 1 BAG IVPB SCH (23:38)
[2021-09-05 00:12] LABS: SARS-CoV-2 PCR by NAA Not Detected (NotDetected)
[2021-09-05] MEDS: Sodium Chloride 0.9% 1,000 ML IV SCH ×3 (03:36→19:20)
[2021-09-05] MEDS: Piperacillin/Tazobactam 3.375 GM in Sodium Chloride 0.9% 100 ML IVPB SCH ×3 (05:39→20:45)
[2021-09-05] MEDS: VANCOMYCIN 2 GRAM/500 ML BAG 2 GM in Premix Bag 1 BAG IVPB SCH ×3 (05:40→23:32)
[2021-09-05] MEDS: HYDROcodone/Acetaminophen 5/325 mg Tablet PO PRN ×3 (08:18→20:42)
[2021-09-05] MEDS: Enoxaparin Sodium 40 MG/0.4 ML SYRINGE SC SCH (08:20)
[2021-09-05] MEDS ORDERED: Midazolam HCl 2 mg/2 ml Vial ONE (10:49)
[2021-09-05] MEDS ORDERED: fentaNYL Citrate/PF 100 MCG/2 ML SYRINGE ONE (10:50)
[2021-09-05] MEDS ORDERED: PROPOFOL 200 MG/20 ML VIAL ONE (11:14)
[2021-09-05] MEDS ORDERED: Lidocaine 1% PF 5 ML VIAL ONE (11:14)
[2021-09-05] MEDS ORDERED: Ondansetron PF 4 MG/2 ML Vial ONE (11:14)
[2021-09-05] MEDS ORDERED: Ketorolac Tromethamine 30 MG/ML VIAL ONE (11:14)
[2021-09-05] MEDS ORDERED: Succinylcholine 200 MG/10 ml SYRINGE FS ONE (11:14)
[2021-09-05] MEDS ORDERED: Ondansetron HCl/PF 4 MG/2 ML Vial IVP PRN (12:03)
[2021-09-05] MEDS ORDERED: Promethazine HCl 25 MG/ML VIAL IVPB PRN (12:03)
[2021-09-05] MEDS ORDERED: Promethazine HCl 25 MG/ML VIAL IM PRN (12:03)
[2021-09-05] MEDS ORDERED: Ketorolac Tromethamine 30 MG/ML VIAL IVP PRN (12:03)
[2021-09-05] MEDS ORDERED: HYDROmorphone 2 MG/ML VIAL SLOW IVP PRN (12:03)
[2021-09-05] MEDS ORDERED: PACU-Morphine 4MG/ML VIAL SLOW IVP PRN (12:03)
[2021-09-05] MEDS ORDERED: Morphine Sulfate 2 MG/ML SYRINGE SLOW IVP PRN (12:03)
[2021-09-05] MEDS ORDERED: Lidocaine 1% w/Epinephrine 1:100K 20 ML VIAL ONE (12:16)
[2021-09-05] MEDS ORDERED: Fentanyl 100 MCG/2 ML VIAL ONE (12:25)
[2021-09-06] MEDS: HYDROcodone/Acetaminophen 5/325 mg Tablet PO PRN ×4 (00:16→20:45)
[2021-09-06] MEDS ORDERED: Sodium Chloride 0.9% 1,000 ML IV SCH (00:30)
[2021-09-06] MEDS ORDERED: VANCOMYCIN 2 GRAM/500 ML BAG 2 GM in Premix Bag 1 BAG IVPB SCH ×2 (04:00→12:00)
[2021-09-06] MEDS: Piperacillin/Tazobactam 3.375 GM in Sodium Chloride 0.9% 100 ML IVPB SCH ×3 (05:44→21:57)
[2021-09-06 07:15] LABS: #Basophils 0.1 thou/uL (0.0-0.2); #Eosinphils 0.4 thou/uL (0.0-0.7); #Lymphocytes 3.4 thou/uL (1.20-3.40); #Neutrophils 6.6 thou/uL (1.40-6.50); %Basophils 0.8 % (0.0-1.0); %Eosinophils 3.4 % (0.0-10.0); %Lymphocytes 29.8 % (21.0-51.0); %Monocytes 8.6 % (0.0-10.0); %Neutrophils 57.4 % (42.0-75.0); Hemoglobin 14.3 g/dL (14.0-18.0); Mean Corpuscular HGB CONC 34.6 g/dL (32.0-36.0); Mean Corpuscular Hemoglobin 32.7 pg (27.0-31.0); Mean Corpuscular Volume 94.5 fL (78.0-98.0); Mean Platelet Volume 6.8 fL (7.4-10.4); Platelet Count 272 thou/uL (130-400); RBC Distribution Width 12.1 % (11.5-14.5); Red Blood Cell (RBC) Count 4.37 mill/uL (4.70-6.10); White Blood Cell (WBC) Count 11.5 thou/uL (4.8-10.8)
[2021-09-06 08:16] LABS: ALT (SGPT) 108 U/L (8-55); AST (SGOT) 43 U/L (5-34); Albumin 3.5 g/dL (3.5-5.0); Alkaline Phosphatase 136 U/L (40-110); Anion Gap 13 mmol/L (10-20); BUN (Urea Nitrogen) 16 mg/dL (8.9-20.6); Bilirubin, Total 0.9 mg/dL (0.2-1.2); Calc. Creatinine Clearance 199 mL/min (70-130); Calcium 9.1 mg/dL (7.8-10.44); Carbon Dioxide 24 mmol/L (22-29); Chloride 105 mmol/L (98-107); Globulin 3.3 g/dL (2.4-3.5); Glucose 80 mg/dL (70-105); Potassium 4.4 mmol/L (3.5-5.1); Protein, Total 6.8 g/dL (6.0-8.3); Sodium 138 mmol/L (136-145)
[2021-09-06] MEDS: Enoxaparin Sodium 40 MG/0.4 ML SYRINGE SC SCH (08:25)
[2021-09-06] MEDS: Amlodipine 10 MG TAB PO SCH (08:25)
[2021-09-06] MEDS: Morphine 4 MG/ML VIAL SLOW IVP PRN (11:09)
[2021-09-06 11:45] LABS: Vancomycin, Trough 33.6 ug/mL
[2021-09-06 15:13] LABS: HIV-1 Quantitative, RNA PCR <20 copies/mL (.)
[2021-09-06 16:52] LABS: Vancomycin, Random 20.7 ug/mL (See Comment)
[2021-09-06] MEDS: VANCOMYCIN 1.75 GM/500 ML BAG 1.75 GM in Premix Bag 1 BAG IVPB SCH (18:07)
[2021-09-07] MEDS: VANCOMYCIN 1.75 GM/500 ML BAG 1.75 GM in Premix Bag 1 BAG IVPB SCH ×2 (04:57→17:37)
[2021-09-07] MEDS: Piperacillin/Tazobactam 3.375 GM in Sodium Chloride 0.9% 100 ML IVPB SCH ×3 (06:29→20:56)
[2021-09-07 09:09] LABS: #Basophils 0.1 thou/uL (0.0-0.2); #Eosinphils 0.4 thou/uL (0.0-0.7); #Lymphocytes 3.1 thou/uL (1.20-3.40); #Monocytes 0.8 thou/uL (0.11-0.59); #Neutrophils 5.6 thou/uL (1.40-6.50); %Basophils 0.9 % (0.0-1.0); %Eosinophils 4.3 % (0.0-10.0); %Lymphocytes 30.6 % (21.0-51.0); %Monocytes 8.3 % (0.0-10.0); %Neutrophils 55.9 % (42.0-75.0); Hemoglobin 13.9 g/dL (14.0-18.0); Mean Corpuscular HGB CONC 34.2 g/dL (32.0-36.0); Mean Corpuscular Hemoglobin 32.3 pg (27.0-31.0); Mean Corpuscular Volume 94.4 fL (78.0-98.0); Mean Platelet Volume 6.7 fL (7.4-10.4); Platelet Count 276 thou/uL (130-400); RBC Distribution Width 11.9 % (11.5-14.5); Red Blood Cell (RBC) Count 4.31 mill/uL (4.70-6.10)
[2021-09-07] MEDS: Amlodipine 10 MG TAB PO SCH (09:14)
[2021-09-07] MEDS: Enoxaparin Sodium 40 MG/0.4 ML SYRINGE SC SCH (09:15)
[2021-09-07 09:28] LABS: ALT (SGPT) 105 U/L (8-55); AST (SGOT) 39 U/L (5-34); Albumin 3.5 g/dL (3.5-5.0); Alkaline Phosphatase 138 U/L (40-110); Anion Gap 13 mmol/L (10-20); BUN (Urea Nitrogen) 12 mg/dL (8.9-20.6); Bilirubin, Total 0.6 mg/dL (0.2-1.2); Calc. Creatinine Clearance 206 mL/min (70-130); Carbon Dioxide 24 mmol/L (22-29); Chloride 106 mmol/L (98-107); Glucose 119 mg/dL (70-105); Potassium 3.8 mmol/L (3.5-5.1); Protein, Total 6.5 g/dL (6.0-8.3); Sodium 139 mmol/L (136-145)
[2021-09-07] MEDS: Morphine 4 MG/ML VIAL SLOW IVP PRN (11:16)
[2021-09-07 18:00] LABS: Vancomycin, Trough 18.8 ug/mL
[2021-09-08] MEDS: Piperacillin/Tazobactam 3.375 GM in Sodium Chloride 0.9% 100 ML IVPB SCH ×2 (05:41→14:39)
[2021-09-08] MEDS: Amlodipine 10 MG TAB PO SCH (07:54)
[2021-09-08] MEDS: VANCOMYCIN 1.75 GM/500 ML BAG 1.75 GM in Premix Bag 1 BAG IVPB SCH (07:55)
[2021-09-08] MEDS: Enoxaparin Sodium 40 MG/0.4 ML SYRINGE SC SCH (08:00)
[2021-09-08 08:32] VITALS: BP 150/99; TEMP 97.9
[2021-09-08] MEDS: Morphine 4 MG/ML VIAL SLOW IVP PRN (10:04)
[2021-09-08 11:53] LABS: ALT (SGPT) 74 U/L (8-55); AST (SGOT) 24 U/L (5-34); Albumin 3.6 g/dL (3.5-5.0); Alkaline Phosphatase 133 U/L (40-110); Anion Gap 12 mmol/L (10-20); BUN (Urea Nitrogen) 16 mg/dL (8.9-20.6); Bilirubin, Total 0.7 mg/dL (0.2-1.2); Calc. Creatinine Clearance 188 mL/min (70-130); Calcium 9.2 mg/dL (7.8-10.44); Carbon Dioxide 22 mmol/L (22-29); Chloride 107 mmol/L (98-107); Globulin 3.3 g/dL (2.4-3.5); Glucose 77 mg/dL (70-105); Potassium 4.2 mmol/L (3.5-5.1); Protein, Total 6.9 g/dL (6.0-8.3); Sodium 137 mmol/L (136-145)
[2021-09-08 12:09] LABS: #Eosinphils 0.4 thou/uL (0.0-0.7); #Lymphocytes 2.9 thou/uL (1.20-3.40); #Monocytes 0.9 thou/uL (0.11-0.59); #Neutrophils 5.5 thou/uL (1.40-6.50); %Basophils 0.4 % (0.0-1.0); %Eosinophils 3.6 % (0.0-10.0); %Lymphocytes 30.1 % (21.0-51.0); %Monocytes 9.6 % (0.0-10.0); %Neutrophils 56.4 % (42.0-75.0); Mean Corpuscular HGB CONC 32.6 g/dL (32.0-36.0); Mean Corpuscular Hemoglobin 31.3 pg (27.0-31.0); Mean Corpuscular Volume 96.1 fL (78.0-98.0); Mean Platelet Volume 6.7 fL (7.4-10.4); Platelet Count 298 thou/uL (130-400); RBC Distribution Width 12.1 % (11.5-14.5); RBC Morphology Normal; White Blood Cell (WBC) Count 9.7 thou/uL (4.8-10.8)
== END 2021-09-08 15:23 | disposition home or self-care (01) | DRG 854 ==
LOC: ERS 07:20 → T4-A 11:15
PROVIDERS: ADMIT Family Medicine; ATTEND Internal Medicine
PROC: 3E03329 Introduction of Other Anti-infective into Peripheral Vein, Percutaneous Approach (ICD-10-PCS; principal; 2021-09-04)
PROC: 0C900ZZ Drainage of Upper Lip, Open Approach (ICD-10-PCS; 2021-09-05)
DX: A41.02 Sepsis due to Methicillin resistant Staphylococcus aureus (principal); L02.01 Cutaneous abscess of face; M10.9 Gout, unspecified; G89.29 Other chronic pain; F15.10 Other stimulant abuse, uncomplicated; I10 Essential (primary) hypertension; K13.0 Diseases of lips; Z20.822 Contact with and (suspected) exposure to COVID-19; Z72.89 Other problems related to lifestyle; Z79.899 Other long term (current) drug therapy; Z90.49 Acquired absence of other specified parts of digestive tract; Z79.2 Long term (current) use of antibiotics
CPT/HCPCS: 36415; 36416; 70487; 71045; 76705; 80053; 80061; 80074; 80202; 80306; 81001; 83036; 83605; 85025; 87040; 87070; 87077; 87186; 87205; 87389; 87536; 96365; 96367; 96375; J0692; J1650; J1885; J2001; J2250; J2270; J2405; J2543; J2704; J3010; J3370; J3490; J7050; Q9967; U0003; U0005

== ENCOUNTER 2021-11-13 18:18 | Emergency (ER) | payer SELFPAY | END 2021-11-13 19:54 | LOC: ERS 18:18 | DX: S92.424A Nondisplaced fracture of distal phalanx of right great toe, initial encounter for closed fracture (principal); S90.451A Superficial foreign body, right great toe, initial encounter; L03.031 Cellulitis of right toe; W22.8XXA Striking against or struck by other objects, initial encounter ==

== ENCOUNTER 2023-12-16 09:28 | Outpatient (CLI) | payer OTHER | END 2023-12-16 09:29 | disposition home or self-care (01) | LOC: BICRAD 09:28 | PROVIDERS: ATTEND Internal Medicine | DX: Z02.71 Encounter for disability determination (principal); M17.0 Bilateral primary osteoarthritis of knee ==

== ENCOUNTER 2024-02-05 16:52 | Emergency (ER) | payer BC, SELFPAY ==
[~2024-02-05 16:52] MED LIST changes: -Iopamidol-370 76% 500 ML 1 ML ONE; +Iopamidol-370 76% 500 ML MDV (1 ML CHARGE) ONE
[2024-02-05] MEDS ORDERED: Ondansetron PF 4 MG/2 ML Vial ONE (18:34)
[2024-02-05] MEDS ORDERED: Meclizine HCl 25 MG TAB ONE ×2 (18:34→20:24)
[2024-02-05] MEDS ORDERED: Diazepam 10 MG/2 ML SYRINGE ONE (18:36)
[2024-02-05 18:41] LABS: #Basophils 0.11 10x3/uL (0.0-0.2); %Basophils 1.1 % (0.0-1.0); %Eosinophils 1.9 % (0.0-10.0); %Lymphocytes 27.5 % (21.0-51.0); %Monocytes 9.8 % (0.0-10.0); %Neutrophils 58.7 % (42.0-75.0); Hemoglobin 16.1 g/dL (14.0-18.0); Mean Corpuscular Hemoglobin 32.3 pg (27.0-31.0); Mean Corpuscular Volume 92.4 fL (78.0-98.0); Mean Platelet Volume 9.5 fL (7.4-10.4); Platelet Count 275 10x3/uL (130-400); RBC Distribution Width 12.7 % (11.5-14.5); Red Blood Cell (RBC) Count 4.98 mill/uL (4.70-6.10)
[2024-02-05 19:09] LABS: Troponin I Less than 0.010 ng/mL (< 0.028)
[2024-02-05 19:49] LABS: ALT (SGPT) 22 U/L (8-55); AST (SGOT) 18 U/L (5-34); Albumin 3.5 g/dL (3.5-5.0); Alkaline Phosphatase 117 U/L (40-110); Anion Gap 14 mmol/L (10-20); BUN (Urea Nitrogen) 14 mg/dL (8.9-20.6); Bilirubin, Total 0.6 mg/dL (0.2-1.2); Calc. Creatinine Clearance 0 mL/min (70-130); Calcium 9.3 mg/dL (7.8-10.44); Carbon Dioxide 25 mmol/L (22-29); Chloride 104 mmol/L (98-107); Estimated GFR 91; Globulin 3.3 g/dL (2.4-3.5); Glucose 91 mg/dL (70-105); Potassium 4.5 mmol/L (3.5-5.1); Protein, Total 6.8 g/dL (6.0-8.3); Sodium 138 mmol/L (136-145)
[2024-02-05] MEDS ORDERED: Metoclopramide HCl 10 MG (2 mL) VIAL ONE (20:24)
== END 2024-02-05 22:56 | disposition home or self-care (01) ==
LOC: ERS 16:52
DX: R42 Dizziness and giddiness (principal); R29.700 NIHSS score 0; I10 Essential (primary) hypertension
CPT/HCPCS: 70450; 70496; 70498; 80053; 84484; 85025; 93005; 96374; 96375; J2405; J2765; J3360; Q9967